=== PATIENT | female | born 1995 | race Caucasian/White ===

== ENCOUNTER 2016-11-08 18:52 | Emergency (ER) | payer SELFPAY ==
[~2016-11-08] VITALS: Ht 154.9 cm; Wt 54.4 kg
[~2016-11-08 18:52] MED LIST: CIPR500T94 PO; DEXT5TAB27 PO; DOXY100C2 PO; DOXY100T9 PO; HYDR-2666 PO; HYDR-2678 PO; IBUP-1060 PO; METR500T PO; ONDA4TAB10 SL; SULF1TAB24 PO
[2016-11-08 19:30] VITALS: BP 118/67
[2016-11-08 19:54] LABS: BILIRUBIN,URINE NEGATIVE (NEG); GLUCOSE,URINE NEGATIVE (NEG); NITRITE,URINE NEGATIVE (NEG); PROTEIN,URINE NEGATIVE (NEG-TRACE)
[2016-11-08] MEDS ORDERED: AZITHROMYCIN 250 MG TABLET PO ONE (20:00)
[2016-11-08] MEDS ORDERED: CEFTRIAXONE IM 250 MG VIAL. IM ONE (20:00)
[2016-11-08 20:12] LABS: BACTERIA,URINE FEW /HPF (0-FEW); RBC,URINE 0 /HPF (0-2); SQUAMOUS EPITHELIAL CELL,UR MOD /LPF
--- NOTE | 2016-11-08 22:25 | PHYS DOC ---
Past Medical History Past Medical History: Other Additional Past Medical Histor: PID, ENDOMETRIOSIS, ovarian cyst Past Surgical History: Other Additional Past Surgical Histo: wisdom teeth extraction, RIGHT OVARIAN CYST REMOVAL Smoking: Cigar Alcohol Use: Occasionally Drug Use: Marijuana Adult General Chief Complaint Chief Complaint: PAIN ON URINATION [facility] HPI Patient is a 21 year old female who presents with dysuria for 4 days. She also reports urinary frequency, suprapubic pain, and vaginal discharge. She has had occasional nausea with vomiting. Patient also reports that starting yesterday she has had a sore throat, productive cough, nasal congestion. Review of systems negative for hematuria, fever, diarrhea, dyspnea, or ear pain. LMP . She is sexually active and does not use any control or condoms. She has a stable monogamous partner. She has a history of PID. She does not have a primary care doctor. Review of Systems Review of Systems Constitutional: Denies fever or chills. [] Eyes: Denies change in visual acuity, redness, or eye pain. [] HENT: Denies ear pain. Reports nasal congestion and sore throat. Respiratory: Denies shortness of breath. Reports productive cough. Cardiovascular: Denies chest pain, palpitations or edema. [] GI: Denies bloody stools or diarrhea. Reports suprapubic pain, nausea, vomiting. : Denies hematuria. Reports dysuria, urinary frequency, and vaginal discharge. Musculoskeletal: Denies back pain or joint pain. [] Integument: Denies rash or skin lesions. [] Neurologic: Denies headache, focal weakness or sensory changes. [] Endocrine: Denies polyuria or polydipsia. [] Psych: Denies anxiety or depression. [] All systems reviewed and negative unless otherwise stated in the HPI. Current Medications Current Medications Current Medications Medications (Trade) Dose Ordered Sig/Maggie Start Time Stop Time Status Last Admin Dose Admin Azithromycin (Zithromax) 1,000 mg 1X ONCE 11/08/16 20:00 11/08/16 20:01 DC 11/08/16 20:38 1,000 MG Ceftriaxone Sodium (Rocephin Im) 250 mg 1X ONCE 11/08/16 20:00 11/08/16 20:01 DC 11/08/16 20:38 250 MG Allergies Allergies Allergies Coded Allergies Type Severity Reaction Last Updated Verified No Known Drug Allergies 05/09/16 No Physical Exam Physical Exam Constitutional: Well developed, well nourished, no acute distress, non-toxic appearance. [] HENT: Normocephalic, atraumatic, bilateral external ears normal, oropharynx moist, no oral exudates, nose normal. Bilateral TMs without erythema or bulging. There is no posterior pharyngeal erythema or tonsillar edema. Bilateral nasal turbinates are swollen and erythematous. Eyes: PERRLA, EOMI, conjunctiva normal, no discharge. [] Neck: Normal range of motion, no tenderness, supple, no stridor. [] Cardiovascular: Heart rate regular rhythm, no murmur [] Lungs & Thorax: Bilateral breath sounds clear to auscultation without wheezes, rales, or rhonchi. Abdomen: Bowel sounds normal, soft, suprapubic tenderness, no masses, no pulsatile masses. [] Female : ED RN cost controller present. Normal external genitalia. There is mild discharge in the vagina. There is no bleeding. There is no cervicitis or CMT. There is no adnexal mass or tenderness. Skin: Warm, dry, no erythema, no rash. [] Back: No tenderness, no CVA tenderness. [] Extremities: No tenderness, no cyanosis, no clubbing, ROM intact, no edema. [] Neurologic: Alert and oriented X 3, normal motor function, normal sensory function, no focal deficits noted. [] Psychologic: Affect normal, judgement normal, mood normal. [] Current Patient Data Vital Signs Vital Signs Date Time Temp Pulse Resp B/P Pulse Ox O2 Delivery O2 Flow Rate FiO2 11/08/16 19:30 98.8 89 20 100 Room Air 98.8 Lab Values Laboratory Tests Test 11/08/16 19:00 11/08/16 19:41 Urine Color Yellow Urine Clarity Clear Urine pH 6.0 Urine Specific [place] 1.025 Urine Protein Negativemg/dL (NEG-TRACE) Urine Glucose (UA) Negativemg/dL (NEG) Urine Ketones (Stick) Negativemg/dL (NEG) Urine Blood Negative (NEG) Urine Nitrite Negative (NEG) Urine Bilirubin Negative (NEG) Urine Urobilinogen Dipstick 1.0mg/dL (0.2 mg/dL) Urine Leukocyte Esterase Small (NEG) Urine RBC 0/HPF (0-2) Urine WBC 1-4/HPF (0-4) Urine Squamous Epithelial Cells Mod/LPF Urine Bacteria Few/HPF (0-FEW) Urine Mucus Mod/LPF POC Urine HCG, Qualitative Hcg negative (Negative) Microbiology 11/08/16 Wet Prep - Final, Complete WET PREP Final YEAST NONE SEEN TRICHOMONAS NONE SEEN CLUE CELLS CLUE CELLS PRESENT ALTERED ASHANTI ALTERED ASHANTI PRESENT SUGGESTIVE OF BACTERIAL VAGINOSIS WBCS OCCASIONAL RBCS OCCASIONAL SQUAMOUS EPS OCCASIONAL EKG EKG [] Radiology/Procedures Radiology/Procedures [] Course & Med Decision Making Course & Med Decision Making Pertinent Labs and Imaging studies reviewed. (See chart for details) Patient presents with UTI symptoms and URI symptoms. On exam, she appears to have viral upper respiratory infection. Her abdomen is soft and nonsurgical with suprapubic tenderness. Pelvic examination and negative for bleeding, CMT, or adnexal abnormality. Urine is unremarkable for infection. Wet prep is positive for bacterial vaginosis. The patient was treated with Rocephin and azithromycin in the emergency department for STD prophylaxis. She left prior to receiving her results or discharge paperwork. She was not treated for the bacterial vaginosis. ED RN attempted to contact the patient to inform her of the results so that she may return and receive her paperwork and prescription. She left a voicemail for the patient to return the call. Patient remained stable while in the emergency department. Dragon Disclaimer Dragon Disclaimer This electronic medical record was generated, in whole or in part, using a voice recognition dictation system. Departure Departure Impression: Primary Impression: Left against medical advice Additional Impressions: Bacterial vaginosis URI (upper respiratory infection) Disposition: 07 AGAINST MEDICAL ADVICE Condition: STABLE Referrals: NO PCP (PCP) Problem Qualifiers Additional Impressions: URI (upper respiratory infection) URI type: unspecified viral URI Qualified Code: J06.9 - Acute upper respiratory infection, unspecified LAURITA GATES Nov 08, 2016 22:25
== END 2016-11-08 21:27 | disposition left against medical advice (07) ==
LOC: ER 18:52
DX: N76.0 Acute vaginitis (principal); J06.9 Acute upper respiratory infection, unspecified; F17.210 Nicotine dependence, cigarettes, uncomplicated; F12.10 Cannabis abuse, uncomplicated; B96.89 Other specified bacterial agents as the cause of diseases classified elsewhere
CPT/HCPCS: 81001; 81025; 87086; 96372; 99284; J0696; Q0111; Q0144

== ENCOUNTER 2016-12-06 16:22 | Emergency (ER) | payer SELFPAY ==
[~2016-12-06] VITALS: Ht 154.9 cm; Wt 54.4 kg
--- NOTE | 2016-12-06 17:27 | PHYS DOC ---
Past Medical History Past Medical History: Endometriosis, Other Additional Past Medical Histor: PID, ovarian cyst Past Surgical History: Other Additional Past Surgical Histo: wisdom teeth extraction, RIGHT OVARIAN CYST REMOVAL Additional Information: BLACK AND MILDS 1 A DAY Alcohol Use: Occasionally Additional Information: EVERY COUPLE OF WEEKENDS Drug Use: Marijuana Adult General Chief Complaint Chief Complaint: ABDOMINAL PAIN HPI HPI Patient is a 21 year old female who presents with complaint of left lower quadrant abdominal and pelvic pain. Patient states that she has had intermittent symptoms over the past 6 months but has been getting progressive symptoms over the past few days. Patient states that her pain radiates towards her left upper leg. Patient also states over the past 2 weeks she has had abnormal vaginal discharge. Patient states that 6 months ago she had a laparoscopic procedure for treatment of endometriosis and ovarian cysts. Patient 's last menstrual period was on November 15, 2016. Patient states that her pain currently as 9 out of 10. The patient is concerned that her endometriosis may be coming back. Patient has not had any fevers or vomiting associated with her symptoms. Review of Systems Review of Systems Constitutional: Denies fever or chills [] Eyes: Denies change in visual acuity, redness, or eye pain [] HENT: Denies nasal congestion or sore throat [] Respiratory: Denies cough or shortness of breath [] Cardiovascular: No additional information not addressed in HPI [] GI: Denies abdominal pain, nausea, vomiting, bloody stools or diarrhea [] : Pelvic pain, vaginal discharge [] Musculoskeletal: Denies back pain or joint pain [] Integument: Denies rash or skin lesions [] Neurologic: Denies headache, focal weakness or sensory changes [] Current Medications Current Medications Current Medications Medications (Trade) Dose Ordered Sig/Maggie Start Time Stop Time Status Last Admin Dose Admin Acetaminophen/ Hydrocodone Bitart (Lortab 7.5/325) 1 tab 1X ONCE 12/06/16 17:30 12/06/16 17:31 DC 12/06/16 17:45 1 TAB Allergies Allergies Allergies Coded Allergies Type Severity Reaction Last Updated Verified No Known Drug Allergies 05/09/16 No Physical Exam Physical Exam Constitutional: Alert, afebrile, appears in minimal discomfort. [] HENT: Normocephalic, atraumatic, bilateral external ears normal, oropharynx moist, no oral exudates, nose normal. [] Eyes: PERRLA, EOMI, conjunctiva normal, no discharge. [] Neck: Normal range of motion, no tenderness, supple, no stridor. [] Cardiovascular:Heart rate regular rhythm, no murmur [] Lungs & Thorax: Bilateral breath sounds clear to auscultation [] Abdomen: Bowel sounds normal, soft, left lower quadrant tenderness to palpation with mild guarding, no rebound tenderness, no masses, no pulsatile masses. [] Skin: Warm, dry, no erythema, no rash. [] Back: No tenderness, no CVA tenderness. [] Extremities: No tenderness, no cyanosis, no clubbing, ROM intact, no edema. [] Neurologic: Alert and oriented X 3, normal motor function, normal sensory function, no focal deficits noted. [] Current Patient Data Vital Signs Vital Signs Date Time Temp Pulse Resp B/P Pulse Ox O2 Delivery O2 Flow Rate FiO2 12/06/16 18:32 54 16 106/65 100 Room Air 12/06/16 16:40 98.1 98.1 Lab Values Laboratory Tests Test 12/06/16 15:40 12/06/16 16:32 12/06/16 17:45 POC Urine HCG, Qualitative Hcg negative (Negative) Urine Collection Type Unknown Urine Color Yellow Urine Clarity Clear Urine pH 6.5 Urine Specific [place] 1.015 Urine Protein Negativemg/dL (NEG-TRACE) Urine Glucose (UA) Negativemg/dL (NEG) Urine Ketones (Stick) Negativemg/dL (NEG) Urine Blood Negative (NEG) Urine Nitrite Negative (NEG) Urine Bilirubin Negative (NEG) Urine Urobilinogen Dipstick 0.2mg/dL (0.2 mg/dL) Urine Leukocyte Esterase Negative (NEG) Urine RBC 0/HPF (0-2) Urine WBC Occ/HPF (0-4) Urine Squamous Epithelial Cells Mod/LPF Urine Bacteria 0/HPF (0-FEW) Urine Mucus Mod/LPF White Blood Count 6.4x10^3/uL (4.0-11.0) Red Blood Count 4.23x10^6/uL (3.50-5.40) Hemoglobin 12.7g/dL (12.0-15.5) Hematocrit 38.3% (36.0-47.0) Mean Corpuscular Volume 91fL (79-100) Mean Corpuscular Hemoglobin 30pg (25-35) Mean Corpuscular Hemoglobin Concent 33g/dL (31-37) Red Cell Distribution Width 14.9% (11.5-14.5) H Platelet Count 221x10^3/uL (140-400) Neutrophils (%) (Auto) 49% (31-73) Lymphocytes (%) (Auto) 34% (24-48) Monocytes (%) (Auto) 12% (0-9) H Eosinophils (%) (Auto) 4% (0-3) H Basophils (%) (Auto) 1% (0-3) Neutrophils # (Auto) 3.2x10^3uL (1.8-7.7) Lymphocytes # (Auto) 2.2x10^3/uL (1.0-4.8) Monocytes # (Auto) 0.8x10^3/uL (0.0-1.1) Eosinophils # (Auto) 0.2x10^3/uL (0.0-0.7) Basophils # (Auto) 0.1x10^3/uL (0.0-0.2) Sodium Level 146mmol/L (136-145) H Potassium Level 4.4mmol/L (3.5-5.1) Chloride Level 111mmol/L (98-107) H Carbon Dioxide Level 25mmol/L (21-32) Anion Gap 10 (6-14) Blood Urea Nitrogen 13mg/dL (7-20) Creatinine 0.7mg/dL (0.6-1.0) Estimated GFR (Cockcroft-Gault) 106.7 Glucose Level 74mg/dL (70-99) Calcium Level 8.8mg/dL (8.5-10.1) Magnesium Level 2.2mg/dL (1.8-2.4) Laboratory Tests 12/06/16 17:45 Laboratory Tests 12/06/16 17:45 Microbiology 12/06/16 Wet Prep - Final, Complete EKG EKG Not performed [] Radiology/Procedures Radiology/Procedures [facility] [address] [place] [address] IMAGING REPORT Signed PATIENT: BANDAR SANDHU ACCOUNT: [id number] : 1995 LOCATION: ER AGE: 21 SEX: F EXAM STATUS: REG ER ORD. PHYSICIAN: DAVID WONG MD REASON: left adnexal pain, history of endometriosis and ovarian cysts PROCEDURE: PELVIS COMPLETE PROCEDURE Ultrasound pelvis with endovaginal imaging. HISTORY Left adnexal pain, history of endometriosis. TECHNIQUE Transabdominal imaging was performed for initial evaluation of the pelvis. Endovaginal imaging was performed for optimal characterization of the endometrium. COMPARISON None. FINDINGS Transabdominal imaging: Uterus measures 7.4 centimeters centimeters in length. On the transabdominal imaging, there appears to be subtly hypoechoic area involving the endometrium. Endometrial thickness is 15 millimeters. Right ovary measures 3.6 x 1.8 x 3.0 centimeters. Left ovary measures 4.1 x 2.2 x 3.6 centimeters. Endovaginal imaging: Uterus measures 7.6 centimeters in length. Endometrial thickness is 18 millimeters, at the upper limits of normal. Appearance of the endometrium suggest mild Muellerian septation anomaly, such as septate uterus. There is some heterogeneity of endometrial stripe. The left ovary measures 2.9 x 2.9 x 2.8 centimeters and demonstrates a few follicles. Right ovary measures 2.7 x 1.8 x 2.0 centimeters and demonstrates a few follicles. Both ovaries demonstrate normal vascular flow upon Doppler interrogation and are without evidence of torsion. No adnexal masses or free fluid is seen. Both ovaries demonstrate normal vascular flow upon Doppler interrogation and are without evidence of torsion. No adnexal masses are seen. IMPRESSION 1. Appearance of endometrium raises possibility of Muellerian septation anomaly, such as arcuate uterus. 2. There is slight heterogeneity of the endometrium. Recommend correlation with beta HCG to exclude possibility of . 3. Both ovaries are without evidence of torsion. No adnexal masses are seen. Electronically signed by: Misael Carlos MD (Dec 06, 2016 18:51:36) DICTATED and SIGNED BY: MISAEL CARLOS MD DATE: 12/06/161850 CC: DAVID WONG MD; NO PCP ~ [] Course & Med Decision Making Course & Med Decision Making Pertinent Labs and Imaging studies reviewed. (See chart for details) Patient was given [place] in the emergency department for pain. The patient's ultrasound does not show evidence of ovarian torsion or evidence of significant ovarian cysts. The patient's vital signs are stable. Patient has history of chronic pain and has been on OxyContin therapy for treatment. I do not see any evidence of acute surgical process. I recommended that the patient continue on home medications for pain and patient will be started on Naprosyn as an anti- inflammatory to assist with pain control. Advised patient follow-up with her OB/ [facility] in one week. Recommended return to emergency department for any worsening symptoms. Patient was understanding and in agreement with treatment plan. Dragon Disclaimer Dragon Disclaimer This electronic medical record was generated, in whole or in part, using a voice recognition dictation system. Departure Departure Impression: Primary Impression: Pelvic pain Disposition: HOME, SELF-CARE Condition: IMPROVED Referrals: NO PCP (PCP) Patient Instructions: Pelvic Pain, Female Additional Instructions: Follow-up with your [facility] in one week. Return to emergency department for any worsening symptoms. Scripts Naproxen (Naprosyn)500 Mg [id number] Mg PO BID PRN PAIN #20 TAB Prov:DAVID WONG MD 12/06/16 DAVID WONG MD Dec 06, 2016 17:27
[2016-12-06] MEDS ORDERED: HYDROCODONE/APAP 7.5/325MG TABLET. PO ONE (17:30)
[2016-12-06 17:57] LABS: BILIRUBIN,URINE NEGATIVE (NEG); GLUCOSE,URINE NEGATIVE (NEG); NITRITE,URINE NEGATIVE (NEG); PH,URINE 6.5; PROTEIN,URINE NEGATIVE (NEG-TRACE); UROBILINOGEN,URINE 0.2 mg/dL (0.2 mg/dL)
[2016-12-06 18:08] LABS: BASO # 0.1 x10^3/uL (0.0-0.2); BASO % 1 % (0-3); EOS % 4 % (0-3); HEMATOCRIT 38.3 % (36.0-47.0); HEMOGLOBIN 12.7 g/dL (12.0-15.5); LYMPH # 2.2 x10^3/uL (1.0-4.8); LYMPH % 34 % (24-48); MEAN CORPUSCULAR HEMOGLOBIN 30 pg (25-35); MEAN CORPUSCULAR HGB CONC 33 g/dL (31-37); MEAN CORPUSCULAR VOLUME 91 fL (79-100); MONO % 12 % (0-9); NEUT % 49 % (31-73); PLATELET COUNT 221 x10^3/uL (140-400); RED BLOOD COUNT 4.23 x10^6/uL (3.50-5.40); RED CELL DISTRIBUTION WIDTH 14.9 % (11.5-14.5); WHITE BLOOD COUNT 6.4 x10^3/uL (4.0-11.0)
[2016-12-06 18:09] LABS: BACTERIA,URINE 0 /HPF (0-FEW); RBC,URINE 0 /HPF (0-2); SQUAMOUS EPITHELIAL CELL,UR MOD /LPF; WBC,URINE OCC /HPF (0-4)
[2016-12-06 18:15] LABS: CALCIUM 8.8 mg/dL (8.5-10.1); CREATININE 0.7 mg/dL (0.6-1.0); GFR 106.7; MAGNESIUM 2.2 mg/dL (1.8-2.4); POTASSIUM 4.4 mmol/L (3.5-5.1)
[2016-12-06 18:32] VITALS: BP 106/65
--- NOTE | 2016-12-06 18:53 | RAD ---
PROCEDURE Ultrasound pelvis with endovaginal imaging. HISTORY Left adnexal pain, history of endometriosis. TECHNIQUE Transabdominal imaging was performed for initial evaluation of the pelvis. Endovaginal imaging was performed for optimal characterization of the endometrium. COMPARISON None. FINDINGS Transabdominal imaging: Uterus measures 7.4 centimeters centimeters in length. On the transabdominal imaging, there appears to be subtly hypoechoic area involving the endometrium. Endometrial thickness is 15 millimeters. Right ovary measures 3.6 x 1.8 x 3.0 centimeters. Left ovary measures 4.1 x 2.2 x 3.6 centimeters. Endovaginal imaging: Uterus measures 7.6 centimeters in length. Endometrial thickness is 18 millimeters, at the upper limits of normal. Appearance of the endometrium suggest mild Muellerian septation anomaly, such as septate uterus. There is some heterogeneity of endometrial stripe. The left ovary measures 2.9 x 2.9 x 2.8 centimeters and demonstrates a few follicles. Right ovary measures 2.7 x 1.8 x 2.0 centimeters and demonstrates a few follicles. Both ovaries demonstrate normal vascular flow upon Doppler interrogation and are without evidence of torsion. No adnexal masses or free fluid is seen. Both ovaries demonstrate normal vascular flow upon Doppler interrogation and are without evidence of torsion. No adnexal masses are seen. IMPRESSION 1. Appearance of endometrium raises possibility of Muellerian septation anomaly, such as arcuate uterus. 2. There is slight heterogeneity of the endometrium. Recommend correlation with beta HCG to exclude possibility of . 3. Both ovaries are without evidence of torsion. No adnexal masses are seen. Electronically signed by: Misael Carlos MD (Dec 06, 2016 18:51:36)
[2016-12-06] MEDS ORDERED: NAPR500T PO (19:20)
[2016-12-06] MEDS ORDERED: NAPROXEN 500 MG TABLET PO STA (19:20)
== END 2016-12-06 19:33 | disposition home or self-care (01) ==
LOC: ER 16:22
DX: R10.2 Pelvic and perineal pain (principal); R10.32 Left lower quadrant pain; G89.29 Other chronic pain; N73.9 Female pelvic inflammatory disease, unspecified; F12.10 Cannabis abuse, uncomplicated; F17.200 Nicotine dependence, unspecified, uncomplicated
CPT/HCPCS: 36415; 76856; 80048; 81001; 81025; 83735; 85027; 87491; 87591; 99285; Q0111

== ENCOUNTER 2016-12-15 13:09 | Emergency (ER) | payer SELFPAY ==
[~2016-12-15] VITALS: Ht 154.9 cm; Wt 56.7 kg
[~2016-12-15 13:09] MED LIST changes: +NAPR500T PO
[2016-12-15 13:11] VITALS: BP 129/62
--- NOTE | 2016-12-15 14:20 | RAD ---
AP view of the pelvis and two-view study of the left hip Indications: Fell down 20 stairs yesterday. Left hip pain. Left hip: No acute fracture or dislocation or osteolytic process is seen. Pelvis: Hip joints are symmetric. No diastases is seen. No acute fracture or osteolytic process is seen. IMPRESSION: No acute fracture.
--- NOTE | 2016-12-15 14:23 | RAD ---
Two-view left rib detail series and PA view chest x-ray History: Fell down 20 stairs yesterday. Left lower rib cage pain. Findings: No acute left rib fracture is seen. Chest x-ray demonstrates no acute lung infiltrate or pleural effusion or pulmonary edema or pneumothorax. The heart size and mediastinum and pulmonary vasculature and both kristina are unremarkable. IMPRESSION: No acute left rib fracture.
[2016-12-15] MEDS ORDERED: KETOROLAC TROMETHAMINE 60 MG/2 ML INJ. IM ONE (14:45)
[2016-12-15] MEDS ORDERED: TRAM-29 PO (15:04)
[2016-12-15] MEDS ORDERED: METH-37 PO (15:04)
--- NOTE | 2016-12-15 15:04 | PHYS DOC ---
Past Medical History Past Medical History: Endometriosis, Other Additional Past Medical Histor: PID, ovarian cyst Past Surgical History: Other Additional Past Surgical Histo: wisdom teeth extraction, RIGHT OVARIAN CYST REMOVAL Smoking: Cigar Alcohol Use: Occasionally Drug Use: Marijuana Adult General Chief Complaint Chief Complaint: HIP PAIN [facility] HPI Patient is a 21 year old female who presents with with rib and left hip pain after fall yesterday. Patient states that she slipped on wet stairs and fell down approximately 20 stairs. She denies any loss of consciousness. The left hip pain radiates down the left leg. She does not have any weakness or numbness , abdominal pain, nausea, vomiting, or shortness of breath. She is ambulatory. She tried taking ibuprofen at home without relief of her pain. She does not have a PCP. Review of Systems Review of Systems Constitutional: Denies fever or chills. [] Eyes: Denies change in visual acuity, redness, or eye pain. [] HENT: Denies ear pain, nasal congestion or sore throat. [] Respiratory: Denies cough or shortness of breath. [] Cardiovascular: Denies chest pain, palpitations or edema. [] GI: Denies abdominal pain, nausea, vomiting, bloody stools or diarrhea. [] : Denies dysuria, hematuria or urinary frequency. [] Musculoskeletal: Reports left lateral rib and left hip pain. Integument: Denies rash or skin lesions. Reports left hip ecchymosis. Neurologic: Denies headache, focal weakness or sensory changes. Denies loss of consciousness. Endocrine: Denies polyuria or polydipsia. [] Psych: Denies anxiety or depression. [] All systems reviewed and negative unless otherwise stated in the HPI. Current Medications Current Medications Current Medications Medications (Trade) Dose Ordered Sig/Maggie Start Time Stop Time Status Last Admin Dose Admin Ketorolac Tromethamine (Toradol Im) 60 mg 1X ONCE 12/15/16 14:45 12/15/16 14:46 DC 12/15/16 14:52 60 MG Allergies Allergies Allergies Coded Allergies Type Severity Reaction Last Updated Verified No Known Drug Allergies 05/09/16 No Physical Exam Physical Exam Constitutional: Well developed, well nourished, no acute distress, non-toxic appearance. [] HENT: Normocephalic, atraumatic, oropharynx moist. [] Eyes: PERRLA, EOMI, conjunctiva normal, no discharge. [] Neck: Normal range of motion, no tenderness, supple, no stridor. [] Cardiovascular: Heart rate regular rhythm, no murmur. [] Lungs & Thorax: Bilateral breath sounds clear to auscultation without wheezes, rales, or rhonchi. Left lateral rib tenderness without crepitus. No respiratory distress. Abdomen: Bowel sounds normal, soft, no tenderness, no masses, no pulsatile masses. [] Skin: Warm, dry, no erythema, no rash. There is mild ecchymosis over the left anterior superior iliac spine. Back: No midline tenderness, no CVA tenderness. [] Extremities: Left lateral hip tenderness, ROM intact, no edema. 2+ pedal pulses bilaterally. Light touch sensation intact proximally and distally and equal bilaterally in the lower extremities. Neurologic: Alert and oriented X 3, normal motor function, normal sensory function, no focal deficits noted. [] Psychologic: Affect normal, judgement normal, mood normal. [] Current Patient Data Vital Signs Vital Signs Date Time Temp Pulse Resp B/P Pulse Ox O2 Delivery O2 Flow Rate FiO2 12/15/16 13:11 98.2 87 20 129/62 100 Room Air 98.2 Lab Values Laboratory Tests Test 12/15/16 12:51 POC Urine HCG, Qualitative Hcg negative (Negative) EKG EKG [] Radiology/Procedures Radiology/Procedures REASON: fall down stairs yesterday PROCEDURE: HIP LEFT 2V WITH PELVIS AP view of the pelvis and two-view study of the left hip Indications: Fell down 20 stairs yesterday. Left hip pain. Left hip: No acute fracture or dislocation or osteolytic process is seen. Pelvis: Hip joints are symmetric. No diastases is seen. No acute fracture or osteolytic process is seen. IMPRESSION: No acute fracture. REASON: fall down stairs yesterday PROCEDURE: RIBS LEFT AND PA CHEST Two-view left rib detail series and PA view chest x-ray History: Fell down 20 stairs yesterday. Left lower rib cage pain. Findings: No acute left rib fracture is seen. Chest x-ray demonstrates no acute lung infiltrate or pleural effusion or pulmonary edema or pneumothorax. The heart size and mediastinum and pulmonary vasculature and both kristina are unremarkable. IMPRESSION: No acute left rib fracture. Course & Med Decision Making Course & Med Decision Making Pertinent Labs and Imaging studies reviewed. (See chart for details) [] Dragon Disclaimer Dragon Disclaimer This electronic medical record was generated, in whole or in part, using a voice recognition dictation system. Departure Departure Impression: Primary Impression: Rib contusion Additional Impression: Contusion of hip, left Disposition: 01 HOME, SELF-CARE Condition: STABLE Referrals: NO PCP (PCP) Patient Instructions: Hip Pointer (Iliac Crest Contusion)-Sports[facility], Rib Contusion Additional Instructions: There were no broken bones seen on your x-rays today. Please take the prescribed medications as directed. Do not drive or operate heavy machinery while taking these medications. Please follow-up with a primary care doctor if your pain continues. Return to the emergency department if you have any new or concerning symptoms. Scripts Methocarbamol (Robaxin)500 Mg [id number] Mg PO QID #20 TAB Prov:LAURITA GATES 12/15/16 Tramadol Hcl (Ultram)50 Mg [id number] Mg PO Q6H PRN PAIN #20 TAB Prov:LAURITA GATES 12/15/16 Problem Qualifiers Primary Impression: Rib contusion Encounter type: initial encounter Laterality: left Qualified Code: S20.212A - Contusion of left front wall of thorax, initial encounter LAURITA GATES Dec 15, 2016 15:04
== END 2016-12-15 15:15 | disposition home or self-care (01) ==
LOC: ER 13:09
DX: S20.212A Contusion of left front wall of thorax, initial encounter (principal); S70.02XA Contusion of left hip, initial encounter; W10.8XXA Fall (on) (from) other stairs and steps, initial encounter; Y93.89 Activity, other specified; Y92.89 Other specified places as the place of occurrence of the external cause; Y99.8 Other external cause status
CPT/HCPCS: 71101; 73502; 81025; 96372; 99284; J1885

== ENCOUNTER 2017-01-06 11:45 | Emergency (ER) | payer SELFPAY ==
[~2017-01-06 11:45] MED LIST changes: +METH-37 PO; +TRAM-29 PO
[2017-01-06] MEDS ORDERED: METR500T PO (16:48)
[2017-01-06] MEDS ORDERED: NITR100C62 PO (16:48)
[2017-01-06] MEDS ORDERED: PRED20TA PO (16:51)
== END 2017-01-06 13:23 | disposition left against medical advice (07) ==
LOC: ER 11:45
DX: N89.8 Other specified noninflammatory disorders of vagina (principal)

== ENCOUNTER 2017-01-06 14:09 | Emergency (ER) | payer SELFPAY ==
[~2017-01-06] VITALS: Ht 154.9 cm; Wt 56.7 kg
[2017-01-06 15:17] VITALS: BP 109/75
--- NOTE | 2017-01-06 15:57 | PHYS DOC ---
Past Medical History Past Medical History: Endometriosis, Other Additional Past Medical Histor: PID, ovarian cyst Past Surgical History: Other Additional Past Surgical Histo: wisdom teeth extraction, RIGHT OVARIAN CYST REMOVAL Additional Information: smokes 1/2 black and mild cigar daily Alcohol Use: Occasionally Drug Use: Marijuana Adult General Chief Complaint Chief Complaint: MULTIPLE COMPLAINTS [facility] HPI Patient is a 21 year old female presents to the emergency department stating that she has left lower back pain down in the left leg. She states she was seen here in December when she had fallen down the stairs and was diagnosed with back strain. She was provided with tramadol which has not helped the pain. She also state she is having vaginal discharge in which she had been diagnosed with BV but did not complete treatment. She is sexually active with one partner without protection. Review of Systems Review of Systems Constitutional: Denies fever or chills [] Eyes: Denies change in visual acuity, redness, or eye pain [] HENT: Denies nasal congestion or sore throat [] Respiratory: Denies cough or shortness of breath [] Cardiovascular: No additional information not addressed in HPI [] GI: Denies abdominal pain, nausea, vomiting, bloody stools or diarrhea [] : dysuria denies hematuria, c/o vaginal discharge Musculoskeletal: left lower back pain denies joint pain [] Integument: Denies rash or skin lesions [] Neurologic: Denies headache, focal weakness or sensory changes [] Allergies Allergies Allergies Coded Allergies Type Severity Reaction Last Updated Verified No Known Drug Allergies 05/09/16 No Physical Exam Physical Exam Constitutional: Well developed, well nourished, no acute distress, non-toxic appearance. [] HENT: Normocephalic, atraumatic, bilateral external ears normal, oropharynx moist, no oral exudates, nose normal. [] Eyes: PERRLA, EOMI, conjunctiva normal, no discharge. [] Neck: Normal range of motion, no tenderness, supple, no stridor. [] Cardiovascular:Heart rate regular rhythm, no murmur [] Lungs & Thorax: Bilateral breath sounds clear to auscultation [] Skin: Warm, dry, no erythema, no rash. [] Back: Left lower back tenderness[] Extremities: No tenderness, no cyanosis, no clubbing, ROM intact, no edema. Peripheral pulse 2+ cap refill brisk < 2 seconds. Good sensation noted. Neurologic: Alert and oriented X 3, normal motor function, normal sensory function, no focal deficits noted. [] Psychologic: Affect normal, judgement normal, mood normal. [] Vaginal exam: speculum exam with patient noted to have white thick vaginal discharge. Manual exam: no CMT no adnexal tenderness noted. Current Patient Data Vital Signs Vital Signs Date Time Temp Pulse Resp B/P Pulse Ox O2 Delivery O2 Flow Rate FiO2 01/06/17 15: 97.9 73 16 109/75 99 Room Air 97.9 Lab Values Laboratory Tests Test 01/06/17 15:08 01/06/17 15:45 POC Urine HCG, Qualitative Hcg negative (Negative) Urine Color Yellow Urine Clarity Clear Urine pH 6.5 Urine Specific [place] 1.015 Urine Protein Negativemg/dL (NEG-TRACE) Urine Glucose (UA) Negativemg/dL (NEG) Urine Ketones (Stick) Negativemg/dL (NEG) Urine Blood Negative (NEG) Urine Nitrite Negative (NEG) Urine Bilirubin Negative (NEG) Urine Urobilinogen Dipstick 0.2mg/dL (0.2 mg/dL) Urine Leukocyte Esterase Trace (NEG) Urine RBC 0/HPF (0-2) Urine WBC 1-4/HPF (0-4) Urine Squamous Epithelial Cells Occ/LPF Urine Amorphous Sediment Present/HPF Urine Bacteria Few/HPF (0-FEW) Microbiology 01/06/17 Wet Prep - Final, Complete EKG EKG [] Radiology/Procedures Radiology/Procedures [] Course & Med Decision Making Course & Med Decision Making Pertinent Labs and Imaging studies reviewed. (See chart for details) Urine was positive for urinary tract infection, with prep was positive for bacterial vaginosis. Patient states she is not concerned for any sexual transmitted infections in with prefer not to be treated at this time. Patient will be discharged home with Flagyl and with Macrobid. Patient will be encouraged to drink plenty of fluids such as water and cranberry juice. Recommended avoiding cranberry juice cocktail, carbonated beverages, citrus fruits and alcohol sees her considered irritants to the bladder. Patient will be discharged home with signs and symptoms to return back to emergency department. [] Dragon Disclaimer Dragon Disclaimer This electronic medical record was generated, in whole or in part, using a voice recognition dictation system. Departure Departure Impression: Primary Impression: Bacterial vaginosis Additional Impression: Urinary tract infection Disposition: 01 HOME, SELF-CARE Condition: STABLE Referrals: NO PCP (PCP) Patient Instructions: Bacterial Vaginosis, [id number], Urinary Tract Infection, [id number] Additional Instructions: Urine results was positive for urinary tract infection. Wet prep was positive for bacterial vaginosis. You'll be contacted in 3-4 days if you're results for sexual transmitted infections are positive. Medications as prescribed. Drink plenty of fluids such as water and cranberry juice. Avoid cranberry juice cocktail, carbonated beverages, citrus fruits and alcohol sees her considered irritants to the bladder. Follow-up to primary care physician next 7-10 days. Return back to emergency prior signs and symptoms of become worse. Scripts Nitrofurantoin Monohyd/M-Cryst (Macrobid 100 Mg Capsule)100 Mg Capsule1 Cap PO BID #14 CAP Prov:RAVINDER FIERRO APRN 01/06/17 Metronidazole (Flagyl)500 Mg Tablet1 Tab PO BID #14 TAB Prov:RAVINDER FIERRO APRN 01/06/17 Problem Qualifiers RAVINDER FIERRO APRN January 06, 2017 15:57
[2017-01-06 16:25] LABS: BILIRUBIN,URINE NEGATIVE (NEG); GLUCOSE,URINE NEGATIVE (NEG); NITRITE,URINE NEGATIVE (NEG); PH,URINE 6.5; PROTEIN,URINE NEGATIVE (NEG-TRACE); UROBILINOGEN,URINE 0.2 mg/dL (0.2 mg/dL)
[2017-01-06 16:43] LABS: BACTERIA,URINE FEW /HPF (0-FEW); RBC,URINE 0 /HPF (0-2); SQUAMOUS EPITHELIAL CELL,UR OCC /LPF
[2017-01-06] MEDS ORDERED: NITR100C62 PO (16:48)
[2017-01-06] MEDS ORDERED: METR500T PO (16:48)
[2017-01-06] MEDS ORDERED: PRED20TA PO (16:51)
== END 2017-01-06 17:12 | disposition home or self-care (01) ==
LOC: ER 14:09
DX: N76.0 Acute vaginitis (principal); N39.0 Urinary tract infection, site not specified; B96.89 Other specified bacterial agents as the cause of diseases classified elsewhere; F17.210 Nicotine dependence, cigarettes, uncomplicated; F12.10 Cannabis abuse, uncomplicated
CPT/HCPCS: 81001; 81025; 87086; 87491; 87591; 99284; Q0111; 87186

== ENCOUNTER 2017-02-16 18:24 | Emergency (ER) | payer SELFPAY ==
[~2017-02-16 18:24] MED LIST changes: -HYDR-2666 PO; +HYDR-2758 PO; +NITR100C62 PO; +PRED20TA PO; -TRAM-29 PO; +TRAM-48 PO
[2017-02-16 18:38] VITALS: BP 98/67
--- NOTE | 2017-02-16 18:51 | PHYS DOC ---
Past Medical History Past Medical History: Endometriosis, Other Additional Past Medical Histor: PID, ovarian cyst Past Surgical History: Other Additional Past Surgical Histo: wisdom teeth extraction, RIGHT OVARIAN CYST REMOVAL Alcohol Use: Occasionally Drug Use: Marijuana Adult General Chief Complaint Chief Complaint: LACERATION/AVULSION [facility] HPI Patient is a 21 year old female presents to the emergency department stating she was trying to sharpen a knife using a branch. Patient states that the knife slipped and cut her in the left hand. She has a 1 cm laceration noted at the MIP. Patient has full range of motion of the fingers. She is unsure when her last tetanus immunization occurred. Bleeding is currently controlled. Cap refills less than 2 seconds. Review of Systems Review of Systems Constitutional: Denies fever or chills [] Eyes: Denies change in visual acuity, redness, or eye pain [] HENT: Denies nasal congestion or sore throat [] Respiratory: Denies cough or shortness of breath [] Cardiovascular: No additional information not addressed in HPI [] GI: Denies abdominal pain, nausea, vomiting, bloody stools or diarrhea [] : Denies dysuria or hematuria [] Musculoskeletal: Denies back pain or joint pain [] Integument: Denies rash or skin lesions. Patient with a 1 cm laceration to the left hand Neurologic: Denies headache, focal weakness or sensory changes [] Endocrine: Denies polyuria or polydipsia [] Current Medications Current Medications Current Medications Medications (Trade) Dose Ordered Sig/Maggie Start Time Stop Time Status Last Admin Dose Admin Diphtheria/ Tetanus/Acell Pertussis (Boostrix) 0.5 ml ONCE ONCE 02/16/17 19:00 02/16/17 19:01 DC 02/16/17 19:03 0.5 ML Lidocaine/Sodium Bicarbonate (Buffered Lidocaine 1%) 20 ml 1X ONCE 02/16/17 19:00 02/16/17 19:01 DC 02/16/17 19:02 20 ML Allergies Allergies Allergies Coded Allergies Type Severity Reaction Last Updated Verified No Known Drug Allergies 05/09/16 No Physical Exam Physical Exam Constitutional: Well developed, well nourished, no acute distress, non-toxic appearance. [] HENT: Normocephalic, atraumatic, bilateral external ears normal, oropharynx moist, no oral exudates, nose normal. [] Eyes: PERRLA, EOMI, conjunctiva normal, no discharge. [] Neck: Normal range of motion, no tenderness, supple, no stridor. [] Cardiovascular:Heart rate regular rhythm Lungs & Thorax: No respiratory distress noted Skin: Warm, dry, no erythema, no rash. Patient with a 1 cm laceration noted to the left first upper MIP area. Patient with full range of motion of the hands. 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 There is no bleeding noted from the site. The wound is gaping. Back: No tenderness Extremities: No tenderness, no cyanosis, no clubbing, ROM intact, no edema. [] Neurologic: Alert and oriented X 3, normal motor function, normal sensory function, no focal deficits noted. [] Psychologic: Affect normal, judgement normal, mood normal. [] Current Patient Data Vital Signs Vital Signs Date Time Temp Pulse Resp B/P (MAP) Pulse Ox O2 Delivery O2 Flow Rate FiO2 02/16/17 18:38 98.9 95 16 97 Room Air 98.9 EKG EKG [] Radiology/Procedures Radiology/Procedures [] Course & Med Decision Making Course & Med Decision Making Pertinent Labs and Imaging studies reviewed. (See chart for details) Patient was provided with discharge instructions treatment regimens and follow- up recommendations. She was instructed to use Tylenol or ibuprofen for pain and discomfort ice packs elevation as much as possible keep the area clean and dry. Clean the site twice daily with soap and water. Signs and symptoms of infection was provided to patient. Recommended following up with the primary care physician 7-10 days for suture removal. [] Dragon Disclaimer Dragon Disclaimer This electronic medical record was generated, in whole or in part, using a voice recognition dictation system. Departure Departure Impression: Primary Impression: Laceration of left hand Disposition: HOME, SELF-CARE Condition: STABLE Referrals: NO PCP (PCP) Patient Instructions: Laceration Care, Adult, [id number], Sutured Wound Care , [id number] Additional Instructions: The area clean and dry. Clean the site twice and was soap and water and apply antibiotic ointment to the area. Watch for signs and symptoms of infection: Redness, warmth, tenderness or any yellow/greenish transient become from the site. Follow-up through primary care physician if you develop any signs and symptoms of infection. Sutures out in the next 7-10 days. Tylenol or ibuprofen for pain and discomfort. Follow-up the primary care physician next 7-10 days for suture removal. Return back to emergency department sign symptoms of become worse. Laceration/Wound Repair Laceration/Wound Repair : Wound Location: upper extremity Wound's Depth, Shape: superficial Wound Length (cm): 1 Wound Explored: clean Betadine Prep?: Yes Anesthesia: 1% Lidocaine Volume Anesthetic (ccs): 4 Wound Debrided: minimal Wound Repaired With: sutures Suture Size/Type: 4:0 Number of Sutures: 3 Progress Lidocaine 1% injected into the area with 4 ml injected. Site cleaned with betadine, 4-0 nylon wit 3 interrupted sutures placed. Patient tolerated procedure well. Nursing staff to place sterile dressing on the area. RAVINDER FIERRO EXHIBIT DESIGNER Feb 16, 2017 18:51
[2017-02-16] MEDS ORDERED: DIPHTH,PERTUSS(ACELL),TET TOX 0.5 ML DISP.SYRIN. VAX IM ONE (19:00)
[2017-02-16] MEDS ORDERED: LIDOCAINE 1% / SOD BICARB 8.4% 20 ML VIAL. IJ ONE (19:00)
== END 2017-02-16 19:26 | disposition home or self-care (01) ==
LOC: ER 18:24
DX: S61.412A Laceration without foreign body of left hand, initial encounter (principal); F12.10 Cannabis abuse, uncomplicated; W26.0XXA Contact with knife, initial encounter; Y93.89 Activity, other specified; Y99.8 Other external cause status; Y92.89 Other specified places as the place of occurrence of the external cause
CPT/HCPCS: 12001; 90471; 90715; 99283-25

== ENCOUNTER 2017-08-26 12:27 | Emergency (ER) | payer SELFPAY ==
[~2017-08-26] VITALS: Ht 154.9 cm; Wt 51.7 kg
[~2017-08-26 12:27] MED LIST changes: +NAPR-683 PO; -NAPR500T PO
--- NOTE | 2017-08-26 13:19 | PHYS DOC ---
Past Medical History Past Medical History: Endometriosis, Other Additional Past Medical Histor: PID, ovarian cyst Past Surgical History: Other Additional Past Surgical Histo: wisdom teeth extraction, RIGHT OVARIAN CYST REMOVAL Alcohol Use: Occasionally Drug Use: Marijuana Adult General Chief Complaint Chief Complaint: ABDOMINAL PAIN HPI HPI Patient is a 22 year old female who presents with suprapubic crampy abdominal pain that shoots down her bilateral legs or knees. She states this is same pain she had 18 months ago when she had endometriosis and had to have surgery for this at that time. She states she also had 2 cysts off her ovaries it was removed. She denies any nausea vomiting, she currently states she is on her periods been bleeding went to 4 tampons since 4 AM this morning that were soaked. She denies any lightheadedness dizziness. She spoke with Dr. Griffiths this morning who told her to go to the emergency Department because he can't her in clinic and talked the first a year. Review of Systems Review of Systems Constitutional: Denies fever or chills [] Eyes: Denies change in visual acuity, redness, or eye pain [] HENT: Denies nasal congestion or sore throat [] Respiratory: Denies cough or shortness of breath [] Cardiovascular: No additional information not addressed in HPI [] GI: Denies abdominal pain, nausea, vomiting, bloody stools or diarrhea [] : Denies dysuria or hematuria [] Musculoskeletal: Denies back pain or joint pain [] Integument: Denies rash or skin lesions [] Neurologic: Denies headache, focal weakness or sensory changes [] Endocrine: Denies polyuria or polydipsia [] All other systems were reviewed and found to be within normal limits, except as documented in this note. Current Medications Current Medications Current Medications Medications (Trade) Dose Ordered Sig/Maggie Start Time Stop Time Status Last Admin Dose Admin Morphine Sulfate 2 mg PRN Q15MIN PRN 08/26/17 14:45 08/27/17 14:44 08/26/17 15:45 2 MG Sodium Chloride 1,000 ml @ 1,000 mls/hr 1X ONCE 08/26/17 14:45 08/26/17 15:44 DC 08/26/17 14:54 1,000 MLS/HR Allergies Allergies Allergies Coded Allergies Type Severity Reaction Last Updated Verified No Known Drug Allergies 05/09/16 No Physical Exam Physical Exam Constitutional: Well developed, well nourished, no acute distress, non-toxic appearance. [] HENT: Normocephalic, atraumatic, bilateral external ears normal, oropharynx moist, no oral exudates, nose normal. [] Eyes: PERRLA, EOMI, conjunctiva normal, no discharge. [] Neck: Normal range of motion, no tenderness, supple, no stridor. [] Cardiovascular:Heart rate regular rhythm, no murmur [] Lungs & Thorax: Bilateral breath sounds clear to auscultation [] Abdomen: Bowel sounds normal, soft, no tenderness, no masses, no pulsatile masses. [] Skin: Warm, dry, no erythema, no rash. [] Back: No tenderness, no CVA tenderness. [] Extremities: No tenderness, no cyanosis, no clubbing, ROM intact, no edema. [] Neurologic: Alert and oriented X 3, normal motor function, normal sensory function, no focal deficits noted. [] Psychologic: Affect normal, judgement normal, mood normal. [] Current Patient Data Vital Signs Vital Signs Date Time Temp Pulse Resp B/P (MAP) Pulse Ox O2 Delivery O2 Flow Rate FiO2 08/26/17 16:00 68 18 109/61 (77) 96 Room Air 08/26/17 13:08 98.6 98.6 Lab Values Laboratory Tests Test 08/26/17 13:20 08/26/17 13:30 Urine Test Negative (NEG) Urine Collection Type Unknown Urine Color Yellow Urine Clarity Clear Urine pH 7.5 Urine Specific [place] 1.020 Urine Protein Negative mg/dL (NEG-TRACE) Urine Glucose (UA) Negative mg/dL (NEG) Urine Ketones (Stick) Negative mg/dL (NEG) Urine Blood Large (NEG) Urine Nitrite Negative (NEG) Urine Bilirubin Negative (NEG) Urine Urobilinogen Dipstick 0.2 mg/dL (0.2 mg/dL) Urine Leukocyte Esterase Small (NEG) Urine RBC >40 /HPF (0-2) Urine WBC 1-4 /HPF (0-4) Urine Squamous Epithelial Cells Few /LPF Urine Bacteria Few /HPF (0-FEW) Urine Mucus Mod /LPF Microbiology 08/26/17 Wet Prep - Final, Complete Laboratory Tests Test 08/26/17 13:30 Urine Collection Type Unknown Urine Color Yellow Urine Clarity Clear Urine pH 7.5 Urine Specific [place] 1.020 Urine Protein Negative mg/dL (NEG-TRACE) Urine Glucose (UA) Negative mg/dL (NEG) Urine Ketones (Stick) Negative mg/dL (NEG) Urine Blood Large (NEG) Urine Nitrite Negative (NEG) Urine Bilirubin Negative (NEG) Urine Urobilinogen Dipstick 0.2 mg/dL (0.2 mg/dL) Urine Leukocyte Esterase Small (NEG) Urine RBC >40 /HPF (0-2) Urine WBC 1-4 /HPF (0-4) Urine Squamous Epithelial Cells Few /LPF Urine Bacteria Few /HPF (0-FEW) Urine Mucus Mod /LPF Microbiology 08/26/17 Wet Prep - Final, Complete EKG EKG [] Radiology/Procedures Radiology/Procedures RUN DATE: 08/26/17 PAGE 1 RUN TIME: [id number] [facility] [address] [place] [address] Miles Razo M.D., Rubber Tester PATIENT: BANDAR SANDHU ACCT: [id number] LOC: [facility] U : [id number] AGE/SX: 22/F ROOM: REG : 08/26/[address]: KIRK NGUYỄN MD : 1995 BED: DIS : STATUS: REG ER TLOC: SPEC #: [id number] CASEY: 08/26/17 STATUS: CAROLANN REQ #: [id number] RECD: 08/26/17-1525 [facility] DR: KIRK NGUYỄN MD SOURCE: VAGINAL ENTR: 08/26/17-[address]: [facility]: ORDERED: WET PREP COMMENTS: Has specimen been collected/obtained? Y Procedure Result WET PREP Final YEAST NONE SEEN TRICHOMONAS NONE SEEN CLUE CELLS NONE SEEN WBCS MODERATE RBCS MANY END OF REPORT Impressions: Dysmenorrhea Course & Med Decision Making Course & Med Decision Making Pertinent Labs and Imaging studies reviewed. (See chart for details) Ultrasound does not show any acute abnormality's. She is not . Her pain is improved substantially with IV pain meds. Being discharged home with oxycodone. I spoke with who is agreeable to plan. Patient's a follow- up with Dr. Griffiths. She's been discharged in stable condition at this time. Dragon Disclaimer Dragon Disclaimer This electronic medical record was generated, in whole or in part, using a voice recognition dictation system. Departure Departure Impression: Primary Impression: Dysmenorrhea Disposition: HOME, SELF-CARE Condition: STABLE Referrals: NO PCP (PCP) Patient Instructions: Dysmenorrhea, [id number] Additional Instructions: The ultrasound did not show any acute abnormalities with your ovaries or uterus. Your being discharged home. You can take oxycodone as instructed and as needed for pain. You should follow up with Dr. Griffiths, please call his office and schedule follow-up appointment. Term back to ER if you have severe pain, lightheadedness dizziness, fevers or other concerns. Scripts Oxycodone Hcl (OXYCODONE HCL) 5 Mg Capsule 1 CAP PO TID Y for PAIN, #20 CAP Prov: KIRK NGUYỄN MD 08/26/17 KIRK NGUYỄN MD Aug 26, 2017 13:19
[2017-08-26 13:42] LABS: BILIRUBIN,URINE NEGATIVE (NEG); GLUCOSE,URINE NEGATIVE (NEG); NITRITE,URINE NEGATIVE (NEG); PH,URINE 7.5; PROTEIN,URINE NEGATIVE (NEG-TRACE); UROBILINOGEN,URINE 0.2 mg/dL (0.2 mg/dL)
[2017-08-26 13:52] LABS: BACTERIA,URINE FEW /HPF (0-FEW); RBC,URINE >40 /HPF (0-2); SQUAMOUS EPITHELIAL CELL,UR FEW /LPF
[2017-08-26] MEDS ORDERED: IV NORMAL SALINE 1000ML BAG 1,000 ML IV ONE (14:45)
[2017-08-26] MEDS: MORPHINE SULFATE 2 MG/ML DISP.SYRIN. IV/SQ PRN ×2 (14:57→15:45)
--- NOTE | 2017-08-26 15:25 | RAD ---
Ultrasound pelvis Indication abdominal pain. History of endometriosis. Technique: Grayscale, color Doppler and spectral waveform ultrasound images of the pelvis obtained. Comparison: Previous study from 12/06/2016 Findings: The uterus measures 7.6 x 4.5 x 5.1 cm (longitudinal, AP, transverse). Suggestion of arcuate uterus. The Endometrium in the right aspect of the uterus measures 7 mm. The endometrium in the left aspect of the uterus measures 14 mm. No vascularity seen within the endometrium (image 42, 44). The right ovary measures 2.3 x 1.4 x 2.0 cm without evidence of cystic or solid lesion and demonstrates evidence of blood flow. The left ovary measures 3.1 x 2.1 x 2.2 cm without evidence of solid or cystic lesion and demonstrates evidence of blood flow. Small amount of free pelvic fluid noted. Impression: 1. Suggestion of arcuate uterus. 2. Bilateral ovaries demonstrate no solid or cystic lesions and demonstrates evidence of blood flow.
[2017-08-26 17:00] VITALS: BP 111/69
[2017-08-26] MEDS ORDERED: OXYC5CAP PO (17:03)
[2017-08-26 17:05] LABS: NEG OBC UR NEG; POS OBC UR POS
== END 2017-08-26 17:08 | disposition home or self-care (01) ==
LOC: ER 12:27
DX: N94.6 Dysmenorrhea, unspecified (principal); F12.10 Cannabis abuse, uncomplicated
CPT/HCPCS: 76856; 81001; 81025; 87086; 87491; 87591; 96361; 96374; 96376; 99285; J2270; J7030; Q0111

== ENCOUNTER 2017-10-27 12:09 | Emergency (ER) | payer SELFPAY ==
[2017-10-27 12:51] LABS: URINE HCG POC HCG NEGATIVE (Negative)
[2017-10-27 13:26] LABS: BILIRUBIN,URINE NEGATIVE (NEG); CLARITY,URINE CLEAR; COLOR,URINE YELLOW; GLUCOSE,URINE NEGATIVE (NEG); NITRITE,URINE NEGATIVE (NEG); PROTEIN,URINE NEGATIVE (NEG-TRACE)
[2017-10-27] MEDS ORDERED: KETOROLAC 30 MG/ML INJ. IV ×2 (13:30)
[2017-10-27] MEDS ORDERED: IV NORMAL SALINE 1000ML BAG 1,000 ML IV ×2 (13:30)
[2017-10-27] MEDS ORDERED: HALOPERIDOL LACTATE 5 MG/ML VIAL. IVP ×2 (13:30)
[2017-10-27 13:38] LABS: BACTERIA,URINE 0 /HPF (0-FEW); RBC,URINE 20-40 /HPF (0-2); SQUAMOUS EPITHELIAL CELL,UR MOD /LPF
== END 2017-10-27 13:41 | disposition left against medical advice (07) ==
LOC: ER 13:41
DX: R10.84 Generalized abdominal pain (principal); G89.29 Other chronic pain; R10.2 Pelvic and perineal pain; Z76.5 Malingerer [conscious simulation]; F12.10 Cannabis abuse, uncomplicated
CPT/HCPCS: 81001; 81025; 99283

== ENCOUNTER 2017-12-17 22:56 | Emergency (ER) | payer SELFPAY ==
[2017-12-17 23:25] LABS: ADD MAN DIFF? NO
[2017-12-17 23:27] LABS: POC GLUCOSE 106 mg/dL (70-99)
[2017-12-17 23:29] LABS: BASO % 0 % (0-3); EOS # 0.1 x10^3/uL (0.0-0.7); EOS % 1 % (0-3); HEMATOCRIT 39.7 % (36.0-47.0); HEMOGLOBIN 13.4 g/dL (12.0-15.5); LYMPH # 1.9 x10^3/uL (1.0-4.8); LYMPH % 25 % (24-48); MEAN CORPUSCULAR HEMOGLOBIN 30 pg (25-35); MEAN CORPUSCULAR HGB CONC 34 g/dL (31-37); MEAN CORPUSCULAR VOLUME 90 fL (79-100); MONO # 0.7 x10^3/uL (0.0-1.1); MONO % 9 % (0-9); NEUT # 4.9 x10^3uL (1.8-7.7); NEUT % 64 % (31-73); PLATELET COUNT 225 x10^3/uL (140-400); RED BLOOD COUNT 4.41 x10^6/uL (3.50-5.40); RED CELL DISTRIBUTION WIDTH 13.7 % (11.5-14.5); WHITE BLOOD COUNT 7.6 x10^3/uL (4.0-11.0)
[2017-12-17 23:36] LABS: ANION GAP 17 (6-14); BLOOD UREA NITROGEN 11 mg/dL (7-20); BUN/CREATININE RATIO 11 (6-20); CALCIUM 8.9 mg/dL (8.5-10.1); CARBON DIOXIDE 19 mmol/L (21-32); CHLORIDE 104 mmol/L (98-107); GLUCOSE 110 mg/dL (70-99); POTASSIUM 3.5 mmol/L (3.5-5.1); SODIUM 140 mmol/L (136-145)
[2017-12-17 23:43] LABS: ALBUMIN 3.8 g/dL (3.4-5.0); ALK PHOS 66 U/L (46-116); ALT (SGPT) 15 U/L (14-59); AST (SGOT) 18 U/L (15-37); TOTAL BILIRUBIN 0.3 mg/dL (0.2-1.0); TOTAL PROTEIN 7.7 g/dL (6.4-8.2)
[2017-12-17 23:43] LABS: ETHANOL < 10 mg/dL (0-10)
[2017-12-18 00:04] LABS: BARBITURATES NEG (NEG); BENZODIAZEPINES POS (NEG); CANNABINOIDS POS (NEG); COCAINE NEG (NEG); METHADONE NEG (NEG); OPIATES NEG (NEG); PHENCYCLIDINE NEG (NEG)
[2017-12-18 00:05] LABS: AMPHETAMINE/METHAMPHETAMINE POS (NEG); ETHANOL, URINE NEG (NEG)
== END 2017-12-18 00:54 | disposition home or self-care (01) ==
LOC: ER 12-18 00:54
DX: R56.9 Unspecified convulsions (principal); F12.10 Cannabis abuse, uncomplicated; F17.210 Nicotine dependence, cigarettes, uncomplicated
CPT/HCPCS: 36415; 70450; 72125; 80053; 80307; 82962; 84702; 85025; 99285-25; G0480

== ENCOUNTER 2018-03-21 13:27 | Emergency (ER) | payer OTHER ==
[2018-03-21 14:35] LABS: BILIRUBIN,URINE NEGATIVE (NEG); CLARITY,URINE CLEAR; COLOR,URINE YELLOW; GLUCOSE,URINE NEGATIVE (NEG); NITRITE,URINE NEGATIVE (NEG); PH,URINE 7.5; PROTEIN,URINE NEGATIVE (NEG-TRACE); UROBILINOGEN,URINE 0.2 mg/dL (0.2 mg/dL)
[2018-03-21 14:36] LABS: BACTERIA,URINE FEW /HPF (0-FEW); RBC,URINE 0 /HPF (0-2); SQUAMOUS EPITHELIAL CELL,UR FEW /LPF; WBC,URINE 0 /HPF (0-4)
[2018-03-21 15:12] LABS: ADD MAN DIFF? NO
[2018-03-21 15:16] LABS: BASO % 0 % (0-3); EOS # 0.2 x10^3/uL (0.0-0.7); EOS % 1 % (0-3); HEMATOCRIT 32.4 % (36.0-47.0); HEMOGLOBIN 11.3 g/dL (12.0-15.5); LYMPH # 1.9 x10^3/uL (1.0-4.8); LYMPH % 16 % (24-48); MEAN CORPUSCULAR HEMOGLOBIN 32 pg (25-35); MEAN CORPUSCULAR HGB CONC 35 g/dL (31-37); MEAN CORPUSCULAR VOLUME 92 fL (79-100); MONO # 0.9 x10^3/uL (0.0-1.1); MONO % 8 % (0-9); NEUT # 9.2 x10^3uL (1.8-7.7); NEUT % 75 % (31-73); PLATELET COUNT 224 x10^3/uL (140-400); RED BLOOD COUNT 3.53 x10^6/uL (3.50-5.40); RED CELL DISTRIBUTION WIDTH 14.5 % (11.5-14.5); WHITE BLOOD COUNT 12.2 x10^3/uL (4.0-11.0)
[2018-03-21 15:31] LABS: ANION GAP 8 (6-14); BLOOD UREA NITROGEN 8 mg/dL (7-20); BUN/CREATININE RATIO 20 (6-20); CALCIUM 8.1 mg/dL (8.5-10.1); CARBON DIOXIDE 24 mmol/L (21-32); CHLORIDE 103 mmol/L (98-107); CREATININE 0.4 mg/dL (0.6-1.0); GFR 201.5; GLUCOSE 87 mg/dL (70-99); POTASSIUM 3.5 mmol/L (3.5-5.1); SODIUM 135 mmol/L (136-145)
[2018-03-21 15:37] LABS: ALBUMIN 2.7 g/dL (3.4-5.0); ALBUMIN/GLOBULIN RATIO 0.8 (1.0-1.7); ALK PHOS 57 U/L (46-116); ALT (SGPT) 19 U/L (14-59); AST (SGOT) 18 U/L (15-37); TOTAL BILIRUBIN 0.2 mg/dL (0.2-1.0); TOTAL PROTEIN 6.2 g/dL (6.4-8.2)
[2018-03-24 20:10] LABS: CHLAMYDIA PROBE Negative (Negative); GC PROBE Negative (Negative)
== END 2018-03-21 17:25 | disposition home or self-care (01) ==
LOC: ER 17:25
DX: O46.92 Antepartum hemorrhage, unspecified, second trimester (principal); O23.592 Infection of other part of genital tract in pregnancy, second trimester; N76.0 Acute vaginitis; B96.89 Other specified bacterial agents as the cause of diseases classified elsewhere; Z3A.16 16 weeks gestation of pregnancy
CPT/HCPCS: 36415; 76805; 80053; 81001; 84702; 85025; 86850; 86900; 86901; 87491; 87591; 99285-25; Q0111

== ENCOUNTER → 2018-04-21 | Outpatient (CLI) | payer OTHER ==
[2018-03-21 17:17] VITALS: BP 94/52
[~2018-04-21] MED LIST changes: +OXYC5CAP PO
[2018-04-21 11:31] LABS: BASO % 0 % (0-3); EOS # 0.2 x10^3/uL (0.0-0.7); EOS % 1 % (0-3); HEMATOCRIT 36.5 % (36.0-47.0); HEMOGLOBIN 12.3 g/dL (12.0-15.5); LYMPH # 1.7 x10^3/uL (1.0-4.8); LYMPH % 13 % (24-48); MEAN CORPUSCULAR HEMOGLOBIN 32 pg (25-35); MEAN CORPUSCULAR HGB CONC 34 g/dL (31-37); MEAN CORPUSCULAR VOLUME 95 fL (79-100); MONO # 0.8 x10^3/uL (0.0-1.1); MONO % 6 % (0-9); NEUT # 10.4 x10^3uL (1.8-7.7); NEUT % 79 % (31-73); PLATELET COUNT 242 x10^3/uL (140-400); RED BLOOD COUNT 3.86 x10^6/uL (3.50-5.40); RED CELL DISTRIBUTION WIDTH 14.5 % (11.5-14.5); WHITE BLOOD COUNT 13.2 x10^3/uL (4.0-11.0)
[2018-04-21 11:54] LABS: ALBUMIN/GLOBULIN RATIO 0.8 (1.0-1.7); CALCIUM 8.4 mg/dL (8.5-10.1); CREATININE 0.5 mg/dL (0.6-1.0); GFR 155.7; POTASSIUM 3.4 mmol/L (3.5-5.1); TOTAL BILIRUBIN 0.2 mg/dL (0.2-1.0); TOTAL PROTEIN 6.9 g/dL (6.4-8.2)
[2018-04-21 11:59] LABS: FREE T4 0.87 ng/dL (0.76-1.46); THYROID STIM HORMONE (TSH) 1.827 uIU/mL (0.358-3.74)
== END | disposition home or self-care (01) ==
LOC: LAB 10:11
PROVIDERS: ATTEND Obstetrics & Gynecology
DX: O09.92 Supervision of high risk pregnancy, unspecified, second trimester (principal); Z3A.20 20 weeks gestation of pregnancy
CPT/HCPCS: 36415; 80053; 84439; 84443; 84479; 85025

== ENCOUNTER 2018-06-08 11:36 | Observation (INO) | payer OTHER ==
[2018-03-21 17:17] VITALS: BP 94/52
[2018-06-08] MEDS ORDERED: IV RINGERS,LACTATED 1000ML 1,000 ML IV SCH (12:11)
[2018-06-08 12:22] LABS: BILIRUBIN,URINE NEGATIVE (NEG); CLARITY,URINE CLEAR; COLOR,URINE YELLOW; NITRITE,URINE NEGATIVE (NEG); PH,URINE 7.5; PROTEIN,URINE NEGATIVE (NEG-TRACE); UROBILINOGEN,URINE 0.2 mg/dL (0.2 mg/dL)
[2018-06-08 12:32] LABS: BACTERIA,URINE MANY /HPF (0-FEW); RBC,URINE 0 /HPF (0-2); SQUAMOUS EPITHELIAL CELL,UR MANY /LPF
[2018-06-08 14:05] LABS: BARBITURATES NEG (NEG); BENZODIAZEPINES NEG (NEG); CANNABINOIDS NEG (NEG); COCAINE NEG (NEG); METHADONE NEG (NEG); OPIATES NEG (NEG); PHENCYCLIDINE NEG (NEG)
[2018-06-08 14:06] LABS: AMPHETAMINE/METHAMPHETAMINE NEG (NEG)
== END 2018-06-08 14:00 | disposition home or self-care (01) ==
LOC: 3 SO LND 11:36
PROVIDERS: ADMIT Obstetrics & Gynecology; ATTEND Obstetrics & Gynecology
DX: O26.892 Other specified pregnancy related conditions, second trimester (principal); R10.9 Unspecified abdominal pain; Z3A.27 27 weeks gestation of pregnancy; Z79.899 Other long term (current) drug therapy
CPT/HCPCS: 36415; 80307; 81001; 82731; 87086; G0378; G0379; G0479

== ENCOUNTER 2019-08-16 11:54 | Emergency (ER) | payer OTHER ==
[~2019-08-16] VITALS: Ht 154.9 cm; Wt 59.0 kg
[~2019-08-16 11:54] MED LIST changes: +DOXY-96 PO; -DOXY100T9 PO; -HYDR-2758 PO; +HYDR-2761 PO
[2019-08-16 12:06] VITALS: BP 122/58
[2019-08-16 12:25] LABS: BILIRUBIN,URINE NEGATIVE (NEG); CLARITY,URINE CLEAR; COLOR,URINE YELLOW; NITRITE,URINE NEGATIVE (NEG); PROTEIN,URINE NEGATIVE (NEG-TRACE); UROBILINOGEN,URINE 0.2 mg/dL (0.2 mg/dL)
--- NOTE | 2019-08-16 12:29 | PHYS DOC ---
Past Medical History Past Medical History: Endometriosis, Seizure Additional Past Medical Histor: OVARIAN CYSTS Past Surgical History: , Other Additional Past Surgical Histo: CYST REMOVAL, ENDOMETRIOSIS Alcohol Use: None Drug Use: None Adult General Chief Complaint Chief Complaint: VAGINAL BLEEDING [facility] HPI Patient is a 24 year old female patient with history of endometriosis who presents with complaint of vaginal bleeding during . Patient is at 6 weeks of gestation with LMP of June 28 with complaining of bilateral rib cage pain for 1 week that getting force with movement. Patient states she had bright red blood when she wiped herself this morning without need to use a pad. She denies fever and chills, cramping abdominal pain, urinary symptom. Patient states she started to have cough today. Review of Systems Review of Systems Constitutional: Denies fever or chills [] Eyes: Denies change in visual acuity, redness, or eye pain [] HENT: Denies nasal congestion or sore throat [] Respiratory: Denies cough or shortness of breath [] Cardiovascular: No additional information not addressed in HPI [] GI: Reports abdominal pain, denies nausea, vomiting, bloody stools or diarrhea [] : Denies dysuria or hematuria [] Musculoskeletal: Denies back pain or joint pain [] Integument: Denies rash or skin lesions [] Neurologic: Denies headache, focal weakness or sensory changes [] Endocrine: Denies polyuria or polydipsia [] All other systems were reviewed and found to be within normal limits, except as documented in this note. Current Medications Current Medications Current Medications Medications (Trade) Dose Ordered Sig/Maggie Start Time Stop Time Status Last Admin Dose Admin Sodium Chloride 1,000 ml @ 1,000 mls/hr Q1H 08/16/19 12:30 08/16/19 13:29 DC 08/16/19 13:31 1,000 MLS/HR Allergies Allergies Allergies Coded Allergies Type Severity Reaction Last Updated Verified No Known Drug Allergies 05/09/16 No Physical Exam Physical Exam Constitutional: Well developed, well nourished, no acute distress, non-toxic appearance. [] HENT: Normocephalic, atraumatic, bilateral external ears normal, oropharynx moist, no oral exudates, nose normal. [] Eyes: PERRLA, EOMI, conjunctiva normal, no discharge. [] Neck: Normal range of motion, no tenderness, supple, no stridor. [] Cardiovascular:Heart rate regular rhythm, no murmur [] Lungs & Thorax: Bilateral breath sounds clear to auscultation [] Abdomen: Bowel sounds normal, soft, no tenderness, no masses, no pulsatile masses. [] Skin: Warm, dry, no erythema, no rash. [] Back: No tenderness, no CVA tenderness. [] Extremities: No tenderness, no cyanosis, no clubbing, ROM intact, no edema. [] Neurologic: Alert and oriented X 3, normal motor function, normal sensory function, no focal deficits noted. [] Psychologic: Affect normal, judgement normal, mood normal. [] Current Patient Data Vital Signs Vital Signs Date Time Temp Pulse Resp B/P (MAP) Pulse Ox O2 Delivery O2 Flow Rate FiO2 08/16/19 12:06 98.1 65 16 122/58 (79) 96 Room Air 98.1 Lab Values Laboratory Tests Test 08/16/19 12:10 08/16/19 12:20 POC Urine HCG, Qualitative Hcg positive (Negative) White Blood Count 8.2 x10^3/uL (4.0-11.0) Red Blood Count 4.27 x10^6/uL (3.50-5.40) Hemoglobin 12.2 g/dL (12.0-15.5) Hematocrit 37.0 % (36.0-47.0) Mean Corpuscular Volume 87 fL (79-100) Mean Corpuscular Hemoglobin 29 pg (25-35) Mean Corpuscular Hemoglobin Concent 33 g/dL (31-37) Red Cell Distribution Width 16.0 % (11.5-14.5) H Platelet Count 301 x10^3/uL (140-400) Neutrophils (%) (Auto) 67 % (31-73) Lymphocytes (%) (Auto) 21 % (24-48) L Monocytes (%) (Auto) 9 % (0-9) Eosinophils (%) (Auto) 3 % (0-3) Basophils (%) (Auto) 0 % (0-3) Neutrophils # (Auto) 5.5 x10^3/uL (1.8-7.7) Lymphocytes # (Auto) 1.7 x10^3/uL (1.0-4.8) Monocytes # (Auto) 0.7 x10^3/uL (0.0-1.1) Eosinophils # (Auto) 0.3 x10^3/uL (0.0-0.7) Basophils # (Auto) 0.0 x10^3/uL (0.0-0.2) Urine Collection Type Unknown Urine Color Yellow Urine Clarity Clear Urine pH 7.0 Urine Specific [place] 1.020 Urine Protein Negative mg/dL (NEG-TRACE) Urine Glucose (UA) Negative mg/dL (NEG) Urine Ketones (Stick) Negative mg/dL (NEG) Urine Blood Negative (NEG) Urine Nitrite Negative (NEG) Urine Bilirubin Negative (NEG) Urine Urobilinogen Dipstick 0.2 mg/dL (0.2 mg/dL) Urine Leukocyte Esterase Moderate (NEG) Urine RBC 0 /HPF (0-2) Urine WBC 5-10 /HPF (0-4) Urine Squamous Epithelial Cells Many /LPF Urine Bacteria Few /HPF (0-FEW) Urine Mucus Mod /LPF Maternal Serum HCG Beta Subunit 17208 mIU/mL (0-5) H Sodium Level 136 mmol/L (136-145) Potassium Level 3.7 mmol/L (3.5-5.1) Chloride Level 104 mmol/L (98-107) Carbon Dioxide Level 26 mmol/L (21-32) Anion Gap 6 (6-14) Blood Urea Nitrogen 8 mg/dL (7-20) Creatinine 0.6 mg/dL (0.6-1.0) Estimated GFR (Cockcroft-Gault) 123.9 Glucose Level 88 mg/dL (70-99) Calcium Level 8.5 mg/dL (8.5-10.1) Laboratory Tests 08/16/19 12:20 Laboratory Tests 08/16/19 12:20 EKG EKG [] Radiology/Procedures Radiology/Procedures [][facility] [address] [place], [place] [id number] IMAGING REPORT Signed PATIENT: BANDAR SANDHU ACCOUNT: [id number] : 1995 LOCATION: ER AGE: 24 SEX: F EXAM STATUS: REG ER ORD. PHYSICIAN: JOSIE CHUNG MD REASON: vaginal bleeding PROCEDURE: OB <14 WKS W/TV Examination: OB <14 WKS W/TV History: Vaginal bleeding, endometriosis Comparison/Correlation: Ultrasound exam 03/03/2018, pelvic ultrasound 10 12/06/2016 Findings: Transabdominal and transvaginal pelvic ultrasound was performed. Uterus measures 9.6 cm x 3.3 cm x 9.9 cm. Myometrium is normal. There is subchorionic hemorrhage measuring 1.4 cm x 1.3 cm x 1.4 cm superiorly involving the uterus. Intrauterine gestational sac is present with pole having a heart rate is 115 beats per minute. Sac is identified. Colp-rump length of the pole is 0.4 cm corresponding to 6 weeks 1 day gestation and EDC by ultrasound of 04/09/2020. Fluid in the uterine cervix is present. Fluid within the cul-de-sac is present. Right maternal ovary measures 3 cm x 1.77 x 2.8 cm. Left ovary measures 2.4 cm x 1.8 cm x 2.3 cm. Adnexal follicles are present. Impression: Subchorionic hemorrhage. Single living intrauterine gestation with crown-rump length corresponding to 6 weeks 1 day. Pelvic free fluid is presumably physiologic. Minimal fluid within the uterine cervix noted. Electronically signed by: Yogi Steinberg MD (08/16/2019 1:39 PM) [facility] DICTATED and SIGNED BY: YOGI STEINBERG MD DATE: 08/16/19 133 Course & Med Decision Making Course & Med Decision Making Pertinent Labs and Imaging studies reviewed. (See chart for details) Evaluation of patient in ER showed 24-year-old female patient with blood type of A+ and complaining of vaginal spotting during . Patient had unremarkable exam. Patient did not have vaginal bleeding she was in ER. Labs showed mild UTI. Ultrasound showed small subchorionic hemorrhage with single intrauterine . HCG level was more than 50,000. Patient was advised to follow-up with her DIRECTOR OF OUTREACH and have pelvic rest Dragon Disclaimer Dragon Disclaimer This electronic medical record was generated, in whole or in part, using a voice recognition dictation system. Departure Departure Impression: Primary Impression: Threatened Additional Impression: Urinary tract infection Disposition: HOME, SELF-CARE (@[id number]) Condition: IMPROVED Referrals: NO PCP (PCP) Patient Instructions: - Urinary Tract Infection, Threatened Misca rriage Additional Instructions: Drink plenty of liquids Follow-up with your DIRECTOR OF OUTREACH doctor in 2 days Return to ER if not getting better Scripts Cephalexin (KEFLEX) 500 Mg Capsule 1 CAP PO Q8HRS, #21 CAP 0 Refills Prov: JOSIE CHUNG MD 08/16/19 Problem Qualifiers Additional Impression: Urinary tract infection Urinary tract infection type: site unspecified Hematuria presence: without hematuria Qualified Codes: N39.0 - Urinary tract infection, site not specified JOSIE CHUNG MD Aug 16, 2019 12:29
[2019-08-16] MEDS ORDERED: IV NORMAL SALINE 1000ML BAG 1,000 ML IV SCH (12:30)
[2019-08-16 12:34] LABS: BASO % 0 % (0-3); EOS # 0.3 x10^3/uL (0.0-0.7); EOS % 3 % (0-3); HEMOGLOBIN 12.2 g/dL (12.0-15.5); LYMPH # 1.7 x10^3/uL (1.0-4.8); LYMPH % 21 % (24-48); MEAN CORPUSCULAR HEMOGLOBIN 29 pg (25-35); MEAN CORPUSCULAR HGB CONC 33 g/dL (31-37); MEAN CORPUSCULAR VOLUME 87 fL (79-100); MONO # 0.7 x10^3/uL (0.0-1.1); MONO % 9 % (0-9); NEUT # 5.5 x10^3/uL (1.8-7.7); NEUT % 67 % (31-73); PLATELET COUNT 301 x10^3/uL (140-400); RED BLOOD COUNT 4.27 x10^6/uL (3.50-5.40); WHITE BLOOD COUNT 8.2 x10^3/uL (4.0-11.0)
[2019-08-16 12:45] LABS: SQUAMOUS EPITHELIAL CELL,UR MANY /LPF
[2019-08-16 12:47] LABS: BACTERIA,URINE FEW /HPF (0-FEW); CALCIUM 8.5 mg/dL (8.5-10.1); CREATININE 0.6 mg/dL (0.6-1.0); GFR 123.9; POTASSIUM 3.7 mmol/L (3.5-5.1); RBC,URINE 0 /HPF (0-2)
--- NOTE | 2019-08-16 13:42 | RAD ---
Examination: OB <14 WKS W/TV History: Vaginal bleeding, endometriosis Comparison/Correlation: Ultrasound exam 03/03/2018, pelvic ultrasound 10 12/06/2016 Findings: Transabdominal and transvaginal pelvic ultrasound was performed. Uterus measures 9.6 cm x 3.3 cm x 9.9 cm. Myometrium is normal. There is subchorionic hemorrhage measuring 1.4 cm x 1.3 cm x 1.4 cm superiorly involving the uterus. Intrauterine gestational sac is present with pole having a heart rate is 115 beats per minute. Sac is identified. [place]-rump length of the pole is 0.4 cm corresponding to 6 weeks 1 day gestation and EDC by ultrasound of 04/09/2020. Fluid in the uterine cervix is present. Fluid within the cul-de-sac is present. Right maternal ovary measures 3 cm x 1.77 x 2.8 cm. Left ovary measures 2.4 cm x 1.8 cm x 2.3 cm. Adnexal follicles are present. Impression: Subchorionic hemorrhage. Single living intrauterine gestation with crown-rump length corresponding to 6 weeks 1 day. Pelvic free fluid is presumably physiologic. Minimal fluid within the uterine cervix noted. Electronically signed by: Yogi Obrien MD (08/16/2019 1:39 PM) [facility]
[2019-08-16] MEDS ORDERED: CEPH-264 PO (13:58)
== END 2019-08-16 14:30 | disposition home or self-care (01) ==
LOC: ER 11:54
DX: O20.0 Threatened abortion (principal); Z3A.01 Less than 8 weeks gestation of pregnancy; O23.41 Unspecified infection of urinary tract in pregnancy, first trimester; R07.81 Pleurodynia; R05 Cough
CPT/HCPCS: 36415; 76801; 76817; 80048; 81001; 81025; 84702; 85025; 87086; 99285; J7030

== ENCOUNTER 2019-12-21 21:10 | Emergency (ER) | payer OTHER ==
[~2019-12-21] VITALS: Ht 154.9 cm; Wt 56.8 kg
[~2019-12-21 21:10] MED LIST changes: +CEPH-264 PO
--- NOTE | 2019-12-21 21:37 | PHYS DOC ---
Past Medical History Past Medical History: Endometriosis, Seizure Additional Past Medical Histor: OVARIAN CYSTS (BONITA BLAKE APRN) Past Surgical History: , Other Additional Past Surgical Histo: CYST REMOVAL, ENDOMETRIOSIS (BONITA BLAKE APRN) Smoking Status: Never Smoker Alcohol Use: None Drug Use: None (BONITA BLAKE APRN) General Adult EDM: Chief Complaint: SEIZURE HPI: HPI: Patient is a 24 year old female who was brought to the emergency department via EMS after suffering a seizure at home. Patient is currently 6 months . She was sitting on the couch speaking with her child's father when she suddenly began shaking all over and fell off the couch. The episode lasted approximately 1 minute per EMS. Patient was postictal on EMS arrival and continues to be confused to time and date in the ER. Patient significant other states that the patient stopped taking her seizure medications when she found out she was she also has a history of anxiety and has not been taking her anxiety medication. Patient reports 3 loose teeth that are bleeding to the lower anterior jaw. Her only complaint is pain to her lower teeth and jaw where her teeth are loose. She denies any neck or back pain. Patient denies any fever, cough, shortness of breath, nausea, vomiting, diarrhea, chest pain, or palpitations. (BONITA BLAKE APRN) Review of Systems: Review of Systems: Complete ROS is negative unless otherwise noted in HPI. (BONITA BLAKE APRN) Heart Score: Risk Factors: Risk Factors: DM, Current or recent (<one month) smoker, HTN, HLP, family history of CAD, obesity. Risk Scores: Score 0 - 3: 2.5% MACE over next 6 weeks - Discharge Home Score 4 - 6: 20.3% MACE over next 6 weeks - Admit for Clinical Observation Score 7 - 10: 72.7% MACE over next 6 weeks - Early Invasive Strategies (BONITA BLAKE APRN) Allergies: Allergies: Allergies Coded Allergies Type Severity Reaction Last Updated Verified No Known Drug Allergies 05/09/16 No (BONITA BLAKE APRN) Physical Exam: PE: Constitutional: Well developed, well nourished, no acute distress, non-toxic appearance. [] HENT: Normocephalic, bilateral external ears normal, oropharynx moist, no oral exudates, nose normal; three loose teeth with gingival bleeding and deformity to mandible, no missing teeth. [] Eyes: PERRLA, EOMI, conjunctiva normal, no discharge. [] Neck: Normal range of motion, no tenderness, supple, no stridor. [] Cardiovascular:Heart rate regular rhythm Lungs & Thorax: Bilateral breath sounds clear to auscultation, Respirations even and unlabored, no retractions, no respiratory distress[] Abdomen: Bowel sounds normal, soft, no tenderness, no masses, no pulsatile masses. [] Skin: Warm, dry, no erythema, no rash. [] Back: No tenderness Extremities: No tenderness, no cyanosis, no clubbing, ROM intact, no edema. [] Neurologic: Alert and oriented X 2, normal motor function, normal sensory function, no focal deficits noted, postictal, confused to date and time.. [] Psychologic: Affect normal, judgement normal, mood normal. [] (BONITA BLAKE APRN) EKG: EKG: [] (BONITA BLAKE APRN) Radiology/Procedures: Radiology/Procedures: [] (BONITA BLAKE APRN) Course & Med Decision Making: Course & Med Decision Making Pertinent Labs and Imaging studies reviewed. (See chart for details) Patient is a 24-year-old female was brought to the emergency department by EMS after having a witnessed seizure at home. The witness at the home stated that the patient has not been taking seizure medication since she found out she was . She also has a history of anxiety and has not been taking medication for her anxiety. Patient was on the couch when she had a seizure that lasted approximately 1 minute, patient fell from the couch to the floor. Patient had 3 loose teeth noted to the mandible after the seizure. Patient was postictal on arrival to the ER. I ordered IV with a liter of normal saline, 1 mg of Ativan, CBC, CMP, UA, and urine drug screen. Patient was placed in seizure precautions and monitoring was requested from the OB unit to complete in the ER. Report given to Dr. Chung at 2145 who assumed care of this patient. [] (BONITA BLAKE APRN) Course & Med Decision Making Patient care transferred to md at 2200. Dr. Dailey was consulted at 22-40 and stated he is okay to continue Lamictal in . Patient does not know the dose of her medication was advised to follow-up with her [employer] in the morning for finding the dose of medication and prescription of seizure medication. Patient treated with 1 dose of Lamictal 100 mg in ER. Patient also complaining of headache and throat pain and treated with Tylenol in ER after had a dose of morphine earlier. Potassium was 3.3 and patient treated with 1 dose of potassium in ER. Patient had heart rate of 160s and was advised to follow-up with her [employer]. Patient tolerated oral intake. I've spoken with the patient and/or caregivers. I've explained the patient's condition, diagnosis and treatment plan based on information available to me at this time. I've answered the patient's and/or caregivers questions and addressed any concerns. The patient and/or caregivers have a good understanding the patient's diagnosis, condition and treatment plan as can be expected at this point. Vital signs have been stabilized. The patient's condition is stable for discharge from the emergency department. The patient will pursue further outpatient evaluation with her primary care provider or other designated consulting physician as outlined in the discharge instructions. Patient and/or caregivers are agreeable to this plan of care and follow-up instructions have been explained in detail. The patient and/or caregivers have received these instructions in written format and expressed understanding of these discharge instructions. The patient and her caregivers are aware that if any significant change in condition or worsening of symptoms should prompt him to immediately return to this of the closest emergency department. If an emergent department is not readily available I would encourage him to call 911. (JOSIE CHUNG MD) [place] Disclaimer: Ledy Disclaimer: This electronic medical record was generated, in whole or in part, using a voice recognition dictation system. (BONITA BLAKE APRN) Departure Departure Impression: Primary Impression: Seizure disorder Additional Impressions: Currently Qualified Codes: Z3A.24 - 24 weeks gestation of Dental injury Qualified Codes: S09.93XS - Unspecified injury of face, sequela Hypokalemia Noncompliance Disposition: HOME, SELF-CARE (At 2307) Condition: IMPROVED Referrals: NO PCP (PCP) ARTURO GIBBS Jr, MD Patient Instructions: ABCs of , Dental Injury, Hypokalemia, Seizure, Adult Additional Instructions: Drink plenty of liquids Follow-up with your physician in the morning for prescription of seizure medication Follow-up with your dentist in the morning for dental injury Return to ER if not getting better Thank you for visiting [facility]. We appreciate you trusting us with your care. If any additional problems come up don't hesitate to return to visit us. Please follow up with your primary care provider so they can plan maged tional care if needed and know about the problem that you had. If symptoms worsen come back to the Emergency Department. Any concerning symptoms that start such as chest pain, shortness of air, weakness or numbness on one side of the body, running high fevers or any other concerning symptoms return to the ER. BONITA BLAKE APRN Dec 21, 2019 21:37 JOSIE CHUNG MD Dec 21, 2019 23:10
[2019-12-21] MEDS ORDERED: ONDANSETRON PF 4 MG/2 ML VIAL. ONE (21:48)
[2019-12-21] MEDS ORDERED: MORPHINE SULFATE 4 MG/ML VIAL. ONE (21:48)
[2019-12-21] MEDS ORDERED: IV NORMAL SALINE 1000ML BAG 1,000 ML IV ONE (22:00)
[2019-12-21 22:03] LABS: BASO # 0.1 x10^3/uL (0.0-0.2); BASO % 1 % (0-3); EOS # 0.2 x10^3/uL (0.0-0.7); EOS % 1 % (0-3); HEMATOCRIT 32.2 % (36.0-47.0); HEMOGLOBIN 10.8 g/dL (12.0-15.5); LYMPH # 2.4 x10^3/uL (1.0-4.8); LYMPH % 15 % (24-48); MEAN CORPUSCULAR HEMOGLOBIN 31 pg (25-35); MEAN CORPUSCULAR HGB CONC 34 g/dL (31-37); MEAN CORPUSCULAR VOLUME 91 fL (79-100); MONO # 1.1 x10^3/uL (0.0-1.1); MONO % 7 % (0-9); NEUT % 76 % (31-73); PLATELET COUNT 247 x10^3/uL (140-400); RED BLOOD COUNT 3.56 x10^6/uL (3.50-5.40); RED CELL DISTRIBUTION WIDTH 14.6 % (11.5-14.5); WHITE BLOOD COUNT 15.8 x10^3/uL (4.0-11.0)
[2019-12-21 22:11] LABS: BILIRUBIN,URINE NEGATIVE (NEG); CLARITY,URINE CLEAR; COLOR,URINE YELLOW; NITRITE,URINE NEGATIVE (NEG); PROTEIN,URINE NEGATIVE (NEG-TRACE); UROBILINOGEN,URINE 0.2 mg/dL (0.2 mg/dL)
[2019-12-21 22:12] LABS: CREATININE 0.6 mg/dL (0.6-1.0); GFR 123.9; POTASSIUM 3.3 mmol/L (3.5-5.1)
[2019-12-21] MEDS ORDERED: ONDANSETRON PF 4 MG/2 ML VIAL. IV ONE (22:15)
[2019-12-21] MEDS ORDERED: MORPHINE SULFATE 4 MG/ML VIAL. IV ONE (22:15)
[2019-12-21 22:16] LABS: BARBITURATES NEG (NEG); BENZODIAZEPINES POS (NEG); CANNABINOIDS NEG (NEG); COCAINE NEG (NEG); METHADONE NEG (NEG); OPIATES NEG (NEG); PHENCYCLIDINE NEG (NEG)
[2019-12-21 22:17] LABS: AMPHETAMINE/METHAMPHETAMINE NEG (NEG)
[2019-12-21 22:18] LABS: ALBUMIN 2.4 g/dL (3.4-5.0); ALBUMIN/GLOBULIN RATIO 0.6 (1.0-1.7); TOTAL BILIRUBIN 0.1 mg/dL (0.2-1.0); TOTAL PROTEIN 6.1 g/dL (6.4-8.2)
[2019-12-21 22:23] LABS: BACTERIA,URINE FEW /HPF (0-FEW); SQUAMOUS EPITHELIAL CELL,UR MOD /LPF
[2019-12-21 23:00] VITALS: BP 94/53
[2019-12-21] MEDS ORDERED: ACETAMINOPHEN 500 MG TABLET PO ONE (23:00)
[2019-12-21] MEDS ORDERED: POTASSIUM CHLORIDE 20 MEQ TABLET.ER. PO ONE (23:00)
[2019-12-21] MEDS ORDERED: lamoTRIgine 100 MG TABLET. PO ONE (23:00)
== END 2019-12-21 23:17 | disposition home or self-care (01) ==
LOC: ER 21:10
DX: O26.892 Other specified pregnancy related conditions, second trimester (principal); S09.8XXD Other specified injuries of head, subsequent encounter; G40.909 Epilepsy, unspecified, not intractable, without status epilepticus; E87.6 Hypokalemia; Z98.890 Other specified postprocedural states; Z3A.24 24 weeks gestation of pregnancy; W19.XXXD Unspecified fall, subsequent encounter
CPT/HCPCS: 36415; 80053; 80307; 81001; 85025; 87086; 96361; 96374; 96375; 99285; J2060; J2270; J2405; J7030

== ENCOUNTER → 2020-01-05 | Outpatient (CLI) | payer OTHER ==
[2019-12-21 23:00] VITALS: BP 94/53
--- NOTE | 2020-01-05 09:49 | RAD ---
OB ultrasonogram third trimester HISTORY: Uterine size and date discrepancy Sonographic examination appearance was performed and multiple static images were obtained. There is a cephalic position. The maternal cervix appears normal measures 5.5 cm. There is a single live anterior the heartbeat is confirmed at 140 beats for minute. Visualization of structures is limited due to the advanced gestational age. The heart kidneys spine posterior fossa and stomach appear normal. The amniotic fluid volume appears normal dynamic fluid index is 11.6. The LMP of 06/27/2019 corresponds with a 27 week 2 day gestational age and estimated date of confinement of April 03, 2020. This may size by ultrasound is 25 weeks 6 days with estimated date confinement 04/13/2020. Estimated weight is 2 pounds +/- 5 ounces Estimated weight percentile is 34 percent. Measurements are as follows: BPD: 6.2 cm 25 weeks 1 day Head circumference: 23 cm 25 weeks 3 days Abdominal circumference: 21 cm 25 weeks 6 days Femur length 5 cm 27 weeks 1 day There is an anterior placenta IMPRESSION: 1. Single live intrauterine at 27 weeks 2 days gestational age by LMP measures 25 weeks 6 days. There has been slightly less than expected growth since the August 26, 2019 examination. 2. No anatomic abnormality identified. Electronically signed by: Thierno Aldana III, MD (01/05/2020 9:46 AM) [id number]
== END | disposition home or self-care (01) ==
LOC: US 08:29
PROVIDERS: ATTEND Obstetrics & Gynecology
DX: O26.842 Uterine size-date discrepancy, second trimester (principal); Z3A.27 27 weeks gestation of pregnancy
CPT/HCPCS: 76805

== ENCOUNTER 2020-02-11 09:51 | Observation (INO) | payer OTHER ==
[2020-02-11] MEDS ORDERED: ALPRAZolam 1 MG TABLET PO ONE (10:15)
[2020-02-11] MEDS ORDERED: ACETAMINOPHEN 500 MG TABLET PO ONE (11:00)
== END 2020-02-11 11:05 | disposition home or self-care (01) ==
LOC: 3 SO LND 09:51
PROVIDERS: ADMIT Obstetrics & Gynecology; ATTEND Obstetrics & Gynecology
DX: O36.8130 Decreased fetal movements, third trimester, not applicable or unspecified (principal); Z3A.31 31 weeks gestation of pregnancy
CPT/HCPCS: G0378; G0379; 59025

== ENCOUNTER 2020-04-17 18:20 | Inpatient (IN) | payer OTHER, MEDICAID ==
[~2020-04-17] VITALS: Ht 154.9 cm; Wt 63.9 kg
[2020-04-17] MEDS ORDERED: IV NORMAL SALINE 1000ML BAG 1,000 ML IV SCH (18:31)
--- NOTE | 2020-04-17 18:34 | PHYS DOC ---
Past Medical History Past Medical History: Anxiety, Endometriosis, Seizure Additional Past Medical Histor: OVARIAN CYSTS Past Surgical History: , Other Additional Past Surgical Histo: CYST REMOVAL, ENDOMETRIOSIS Smoking Status: Never Smoker Alcohol Use: None Drug Use: None General Adult HPI: HPI: Patient is a 24 year old female who arrives via EMS following a respiratory arrest. Patient was found in car outside a store apneic and cyanotic. Patient has history of drug use and started breathing after 1 mg of intranasal Narcan was administered. Patient arrives with sonorous respirations and assisted respirations. History and physical and review of systems are limited due to altered mental status Review of Systems: Review of Systems: Unobtainable due to altered mental status Heart Score: Risk Factors: Risk Factors: DM, Current or recent (<one month) smoker, HTN, HLP, family history of CAD, obesity. Risk Scores: Score 0 - 3: 2.5% MACE over next 6 weeks - Discharge Home Score 4 - 6: 20.3% MACE over next 6 weeks - Admit for Clinical Observation Score 7 - 10: 72.7% MACE over next 6 weeks - Early Invasive Strategies Allergies: Allergies: Allergies Coded Allergies Type Severity Reaction Last Updated Verified No Known Drug Allergies 05/09/16 No Physical Exam: PE: Constitutional: Drowsy sonorous respirations HENT: Normocephalic, atraumatic, bilateral external ears normal, no trismus nose normal. [] Eyes: Pupils 2 mm sluggish conjunctiva normal, no discharge. [] Neck: Normal range of motion, no tenderness, supple, no stridor. [] Cardiovascular: Tachycardia peripheral pulses intact Lungs & Thorax: Bilateral breath sounds clear, sonorous respirations Abdomen: , soft, no tenderness, no masses, no pulsatile masses. [] Skin: Diaphoresis, no erythema or rash Back: No tenderness, no CVA tenderness. [] Extremities: No tenderness, no cyanosis, no clubbing, ROM intact, no edema. [] Neurologic: Alert and oriented X 0 does not follow commands Psychologic: Unable to assess Current Patient Data: Labs: Laboratory Tests Test 04/17/20 18:25 04/17/20 18:30 White Blood Count 12.3 x10^3/uL Red Blood Count 4.25 x10^6/uL Hemoglobin 12.3 g/dL Hematocrit 37.7 % Mean Corpuscular Volume 89 fL Mean Corpuscular Hemoglobin 29 pg Mean Corpuscular Hemoglobin Concent 33 g/dL Red Cell Distribution Width 18.0 % Platelet Count 350 x10^3/uL Neutrophils (%) (Auto) 44 % Lymphocytes (%) (Auto) 44 % Monocytes (%) (Auto) 10 % Eosinophils (%) (Auto) 3 % Basophils (%) (Auto) 0 % Neutrophils # (Auto) 5.4 x10^3/uL Lymphocytes # (Auto) 5.4 x10^3/uL Monocytes # (Auto) 1.2 x10^3/uL Eosinophils # (Auto) 0.3 x10^3/uL Basophils # (Auto) 0.0 x10^3/uL Maternal Serum HCG Beta Subunit < 1 mIU/mL Sodium Level 141 mmol/L Potassium Level 2.9 mmol/L Chloride Level 104 mmol/L Carbon Dioxide Level 25 mmol/L Anion Gap 12 Blood Urea Nitrogen 14 mg/dL Creatinine 1.1 mg/dL Estimated GFR (Cockcroft-Gault) 61.6 BUN/Creatinine Ratio 13 Glucose Level 234 mg/dL Calcium Level 8.4 mg/dL Total Bilirubin 0.4 mg/dL Aspartate Amino Transf (AST/SGOT) 25 U/L Alanine Aminotransferase (ALT/SGPT) 24 U/L Alkaline Phosphatase 89 U/L Total Protein 7.1 g/dL Albumin 3.4 g/dL Albumin/Globulin Ratio 0.9 Salicylates Level 3.2 mg/dL Salicylate Last Dose Date Unk Salicylate Last Dose Time Unk Acetaminophen Level < 2 mcg/ml Acetaminophen Last Dose Date Unk Acetaminophen Last Dose Time Unk Ethyl Alcohol Level < 10 mg/dL Urine Opiates Screen Neg Urine Methadone Screen Neg Urine Barbiturates Neg Urine Phencyclidine Screen Neg Urine Amphetamine/Methamphetamine Pos Urine Benzodiazepines Screen Pos Urine Cocaine Screen Neg Urine Cannabinoids Screen Neg Urine Ethyl Alcohol Neg Current Medications Medications (Trade) Dose Ordered Sig/Maggie Route PRN Reason Start Time Stop Time Status Last Admin Dose Admin Sodium Chloride 1,000 ml @ 100 mls/hr Q10H IV 04/17/20 18:31 04/18/20 04:30 04/17/20 18:31 Naloxone HCl (Narcan) 2 mg STK-MED ONCE .ROUTE 04/17/20 18:38 04/17/20 18:38 DC Naloxone HCl (Narcan) 2 mg 1X ONCE IV 8/10/20 19:00 04/17/20 19:01 DC 04/17/20 18:25 Vital Signs: Vital Signs Date Time Temp Pulse Resp B/P (MAP) Pulse Ox O2 Delivery O2 Flow Rate FiO2 04/17/20 22:00 72 16 100 04/17/20 21:00 78 16 100 04/17/20 20:00 82 16 100 04/17/20 19:30 88 16 100 04/17/20 19:00 100 16 100 04/17/20 18:20 98.0 104 10 98/68 (78) 100 Bag Valve Mask 98.0 EKG: EKG: [] EKG interpreted by me sinus tach with a rate of 104 incomplete right bundle branch block prolonged QTC normal ST segments Radiology/Procedures: Radiology/Procedures: [][address] [address] IMAGING REPORT Signed PATIENT: BANDAR SANDHU ACCOUNT: [id number] : 1995 LOCATION: ER AGE: 24 SEX: F EXAM STATUS: PRE ER ORD. PHYSICIAN: LAUREN GAYTAN MD REASON: ams PROCEDURE: PORTABLE CHEST 1V INDICATION: Reason: ams / Spl. Instructions: / History: COMPARISON: December 2016 FINDINGS: Single view of chest obtained. Mild elevation of the left hemidiaphragm. Air-filled distention of the stomach at the left upper quadrant. No definite new region of consolidation. IMPRESSION: * No focal airspace consolidation. * Air-filled distention of the stomach with mild elevation left hemidiaphragm. Electronically signed by: Fabio Bolanos MD (04/17/2020 7:26 PM) [id number] DICTATED and SIGNED BY: FABIO BOLANOS MD DATE: 04/17/201925 [address] [address] IMAGING REPORT Signed PATIENT: BANDAR SANDHU ACCOUNT: [id number] : 1995 LOCATION: ER AGE: 24 SEX: F EXAM STATUS: REG ER ORD. PHYSICIAN: LAUREN GAYTAN MD REASON: ams PROCEDURE: CT HEAD WO CONTRAST INDICATION: Reason: ams / Spl. Instructions: / History: COMPARISON: December 2017 TECHNIQUE: Axial CT images obtained through the head without intravenous contrast. One or more of the following individualized dose reduction techniques were utilized for this examination: 1. Automated exposure control; 2. Adjustment of the mA and/or kV according to patient size; 3. Use of iterative reconstruction technique. FINDINGS: No intracranial hemorrhage. No midline shift. Basal cisterns patent. Ventricles and sulci are unremarkable. No acute osseous abnormality. Orbits and paranasal sinuses unremarkable. IMPRESSION: * No acute intracranial hemorrhage. Electronically signed by: Fabio Bolanos MD (04/17/2020 8:03 PM) [id number] DICTATED and SIGNED BY: FABIO BOLANOS MD DATE: 04/17/202002 Course & Med Decision Making: Course & Med Decision Making Pertinent Labs and Imaging studies reviewed. (See chart for details) [] 24-year-old female presents following respiratory arrest. Patient was cyanotic and apneic upon EMS arrival. 1 mg Narcan was administered. Patient was still sonorous when she got to us. She was given 2 mg Narcan IV and had improved respiratory status but still remains altered. Patient is her multiple times in the ER and slowly waking up. Patient still needs admission to ICU for further evaluation and close observation. Critical condition: Overdose, respiratory arrest Critical interventions: Narcan, oxygen, close monitoring, ICU admission Critical care time was [35] minutes exclusive of procedures. Critical care time was [35] minutes which includes time at bedside, spent in discussion of patient's care with specialist and/or family members, with interpretation of laboratory and/or radiological studies and is exclusive of procedures. Dragon Disclaimer: Dragon Disclaimer: This electronic medical record was generated, in whole or in part, using a voice recognition dictation system. Departure Departure Impression: Primary Impression: Overdose Additional Impression: Respiratory failure Disposition: 01 HOME, SELF-CARE Admitting Physician: FRAUSTO (castle) Condition: GUARDED Referrals: NO PCP (PCP) Justicifation of Admission Dx: Justifications for Admission: Justification of Admission Dx: Yes LAUREN GAYTAN MD Apr 17, 2020 18:34
[2020-04-17] MEDS ORDERED: NALOXONE 2 MG/2 ML DISP.SYRIN. ONE (18:38)
[2020-04-17 18:44] LABS: BASO % 0 % (0-3); EOS # 0.3 x10^3/uL (0.0-0.7); EOS % 3 % (0-3); HEMATOCRIT 37.7 % (36.0-47.0); HEMOGLOBIN 12.3 g/dL (12.0-15.5); LYMPH # 5.4 x10^3/uL (1.0-4.8); LYMPH % 44 % (24-48); MEAN CORPUSCULAR HEMOGLOBIN 29 pg (25-35); MEAN CORPUSCULAR HGB CONC 33 g/dL (31-37); MEAN CORPUSCULAR VOLUME 89 fL (79-100); MONO # 1.2 x10^3/uL (0.0-1.1); MONO % 10 % (0-9); NEUT # 5.4 x10^3/uL (1.8-7.7); NEUT % 44 % (31-73); PLATELET COUNT 350 x10^3/uL (140-400); RED BLOOD COUNT 4.25 x10^6/uL (3.50-5.40); WHITE BLOOD COUNT 12.3 x10^3/uL (4.0-11.0)
[2020-04-17 18:54] LABS: BARBITURATES NEG (NEG); BENZODIAZEPINES POS (NEG); CANNABINOIDS NEG (NEG); COCAINE NEG (NEG); METHADONE NEG (NEG); OPIATES NEG (NEG); PHENCYCLIDINE NEG (NEG)
[2020-04-17 18:57] LABS: AMPHETAMINE/METHAMPHETAMINE POS (NEG)
[2020-04-17] MEDS ORDERED: NALOXONE 2 MG/2 ML DISP.SYRIN. IV ONE (19:00)
[2020-04-17 19:02] LABS: ACETAMIN < 2 mcg/ml (10-30); ETHANOL < 10 mg/dL (0-10); SALIC 3.2 mg/dL (2.8-20.0)
[2020-04-17 19:03] LABS: ALBUMIN 3.4 g/dL (3.4-5.0); ALBUMIN/GLOBULIN RATIO 0.9 (1.0-1.7); CALCIUM 8.4 mg/dL (8.5-10.1); CREATININE 1.1 mg/dL (0.6-1.0); GFR 61.6; TOTAL BILIRUBIN 0.4 mg/dL (0.2-1.0); TOTAL PROTEIN 7.1 g/dL (6.4-8.2)
[2020-04-17 19:05] LABS: POTASSIUM 2.9 mmol/L (3.5-5.1)
--- NOTE | 2020-04-17 19:28 | RAD ---
INDICATION: Reason: ams / Spl. Instructions: / History: COMPARISON: December 2016 FINDINGS: Single view of chest obtained. Mild elevation of the left hemidiaphragm. Air-filled distention of the stomach at the left upper quadrant. No definite new region of consolidation. IMPRESSION: * No focal airspace consolidation. * Air-filled distention of the stomach with mild elevation left hemidiaphragm. Electronically signed by: Gilberto Benoit MD (04/17/2020 7:26 PM) [id number]
[2020-04-17] MEDS: IV NORMAL SALINE 1000ML BAG 1,000 ML IV SCH (20:05)
--- NOTE | 2020-04-17 20:06 | RAD ---
INDICATION: Reason: ams / Spl. Instructions: / History: COMPARISON: December 2017 TECHNIQUE: Axial CT images obtained through the head without intravenous contrast. One or more of the following individualized dose reduction techniques were utilized for this examination: 1. Automated exposure control; 2. Adjustment of the mA and/or kV according to patient size; 3. Use of iterative reconstruction technique. FINDINGS: No intracranial hemorrhage. No midline shift. Basal cisterns patent. Ventricles and sulci are unremarkable. No acute osseous abnormality. Orbits and paranasal sinuses unremarkable. IMPRESSION: * No acute intracranial hemorrhage. Electronically signed by: Gilberto Benoit MD (04/17/2020 8:03 PM) [id number]
[2020-04-17] MEDS ORDERED: ONDANSETRON PF 4 MG/2 ML VIAL. IV PRN (20:15)
[2020-04-17] MEDS ORDERED: POTASSIUM CHLORIDE 20MEQ 100 ML IV ONE (22:00)
[2020-04-17 22:15] VITALS: BP 109/71
[2020-04-17 22:30] VITALS: BP 109/64
--- NOTE | 2020-04-17 22:30 | NUR ---
Patient admitted to room 105 at 2200 via cart from ED, accompanied by ED RN. Patient drowsy, alert to self and states she recalled being in her car this evening but does no know what happened after. Updated patient on reason for admission and results of drug screen + for Barbiturates and Meth. Patient states she takes Xanax for seizure disorder but does not use Meth and states she did take her Xanax this am; patient very concerned with how she was + for Meth and becomes very tearful. Patient has healed low abdominal incision from recent ~3 weeks ago. Patient oriented to ICU routine, room, nursing call light, TV/Bed control, Numeric pain scale, diet, activity and POC. Patient verbalized understanding of all. Patient requests branham catheter--#18 Afghan branham inserted using sterile technique after explanation to patient--returned of scant clear yellow urine. Patient states she is concerned she may have had a seizure because her muscles ache "all over like they do after a seizure." Explained to patient there is no way of telling if she had a seizure. Patient states her pain is a 9/10 on Numeric pain scale but no pain meds ordered--will page PCP for pain meds. See Admission information interventions and Admission assessment.
[2020-04-17 22:45] VITALS: BP 99/66
--- NOTE | 2020-04-17 22:55 | NUR ---
Patient has not taken her nighttime dose of Kepra and Xanax for seizures and is concerned she may have had a seizures; Dr Ibrahim paged. Dr Ibrahim returned page, notified of above and home dosage of Kepra and Xanax, and patient also complaning of generalized pain but no pain medications ordered. Orders received for Kepar 500MG po BID, Xanaz 1MG PO BID, and Lortab 5.325NG PO PRN Q6HRS. Patient notified of mediations, see deandre.
[2020-04-17 23:00] VITALS: BP 100/68
[2020-04-17] MEDS ORDERED: LEVE500T6 PO (23:05)
[2020-04-17] MEDS ORDERED: ALPR1TAB6 PO (23:05)
[2020-04-17] MEDS: HYDROcodone/APAP 5/325MG 1 TAB TABLET PO PRN (23:23)
[2020-04-17] MEDS: ALPRAZolam 1 MG TABLET PO SCH (23:23)
[2020-04-17] MEDS: levETIRAcetam 500 MG TABLET PO SCH (23:23)
[2020-04-17 23:30] VITALS: BP 98/63
[2020-04-17 23:59] VITALS: BP 86/59
[2020-04-18] VITALS (10 sets, daily range): BP systolic 84–121; BP diastolic 48–61
--- NOTE | 2020-04-18 04:43 | EKG ---
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
[2020-04-18 05:24] LABS: HEMATOCRIT 34.6 % (36.0-47.0); HEMOGLOBIN 11.4 g/dL (12.0-15.5); RED BLOOD COUNT 3.87 x10^6/uL (3.50-5.40); RED CELL DISTRIBUTION WIDTH 17.9 % (11.5-14.5); WHITE BLOOD COUNT 7.3 x10^3/uL (4.0-11.0)
[2020-04-18 05:38] LABS: CREATININE 0.7 mg/dL (0.6-1.0); GFR 103.7
[2020-04-18] MEDS: HYDROcodone/APAP 5/325MG 1 TAB TABLET PO PRN (06:38)
[2020-04-18] MEDS: IV NORMAL SALINE 1000ML BAG 1,000 ML IV SCH (06:41)
[2020-04-18] MEDS: levETIRAcetam 500 MG TABLET PO SCH (09:48)
[2020-04-18] MEDS: ALPRAZolam 1 MG TABLET PO SCH (09:48)
--- NOTE | 2020-04-18 10:34 | NUR ---
Pt still rating pain at 9/10, despite last dose of Lortab 5/325 given approx 3 hours ago. This RN received telephone orders per Dr. Limon to give a one time dose of Lortab 5/325, then he would be seeing the pt.
[2020-04-18] MEDS ORDERED: HYDROcodone/APAP 5/325MG 1 TAB TABLET PO ONE (11:30)
--- NOTE | 2020-04-18 11:48 | NUR ---
SS following for discharge planning. SS reviewed pt chart and discussed with pt RN. Pt is from home and is currently on room air. Pt positive for Methamphetamine and Benzos. PAT team referral made. Pt cleared by PAT team. Pt provided with resources for addiction and RSI. Discharge to home today. SS will continue to follow for discharge planning.
--- NOTE | 2020-04-18 12:16 | SSS ---
ADMIT DATE: 04/18/2020 CHIEF COMPLAINT: Accidental overdose. HISTORY OF PRESENT ILLNESS: The patient is a pleasant 24-year-old female who was found to have respiratory arrest. She was found outside of a store, not breathing well. She was cyanotic. EMS arrived and gave her some Narcan and that did seem to improve her, she was admitted overnight for observation. This morning, we had the psychiatric assessment team see her. They feel like she is safe to go home. We are going to discharge. PAST MEDICAL HISTORY: The patient tells me she has a history of seizures and takes Keppra for that. She also uses p.r.n. Ativan and p.r.n. Percocet for the muscle pain after her seizures. Endometriosis, anxiety and . ALLERGIES: None. FAMILY HISTORY: Diabetes. SOCIAL HISTORY: She does not drink, smoke or take drugs. MEDICATIONS: Reviewed, please refer to the MRAD. REVIEW OF SYSTEMS: GENERAL: No history of weight change, weakness or fevers. SKIN: No bruising, hair changes or rashes. EYES: No blurred, double or loss of vision. NOSE AND THROAT: No history of nosebleeds, hoarseness or sore throat. HEART: No history of palpitations, chest pain or shortness of breath on exertion. LUNGS: Denies cough, hemoptysis, wheezing or shortness of breath. GASTROINTESTINAL: Denies changes in appetite, nausea, vomiting, diarrhea or constipation. GENITOURINARY: No history of frequency, urgency, hesitancy or nocturia. NEUROLOGIC: Denies history of numbness, tingling, tremor or weakness. PSYCHIATRIC: No history of panic, anxiety or depression. ENDOCRINE: No history of heat or cold intolerance, polyuria or polydipsia. EXTREMITIES: Denies muscle weakness, joint pain, pain on walking or stiffness. PHYSICAL EXAMINATION: VITALS: Within normal limits and are stable. GENERAL: No apparent distress. Alert and oriented. HEENT: Normal cephalic atraumatic, external auditory canals are patent EYES: Extraocular muscles are intact, pupils are equally round and reactive to light and accommodation MUSCULOSKELETAL: Well developed, well nourished, good range of motion ENDOCRINE: No thyromegaly was palpated LYMPHATICS: No cervical chain or axillary nodes were noted HEMATOPOIETIC: No bruising NECK: Supple, no JVD, no thyromegaly was noted. LUNGS: Clear to auscultation in all lung thomas without rhonchi or wheezing. HEART: RRR, S1, S2 present. Peripheral pulses intact, no obvious murmurs were noted. ABDOMEN: Soft, nontender. Positive bowel sounds no organomegaly, normal bowel sounds. EXTREMITIES: Without any cyanosis, clubbing, or edema. Pedal pulses intact, Homans sign is negative. NEUROLOGIC: Normal speech, normal tone. A & O x3, moves all extremities, no obvious focal deficits. PSYCHIATRIC: Normal affect, normal mood. Stable. SKIN: No ulcerations or rashes, good skin turgor, no jaundice. VASCULAR: Good capillary refill, neurovascular bundle appears to be intact. ASSESSMENT AND PLAN: Resolving accidental overdose. PLAN: Discharge. DISPOSITION: Home. ACTIVITY: As tolerated. DIET: Low sodium. MEDICATIONS: I gave her 2 prescriptions for 10 tablets of Percocet 5 mg 1 every 6 hours p.r.n. and she also wanted a refill on her Xanax. I gave her a prescription for 10 tablets of Xanax 1 mg to take 1 p.o. q.8 hours p.r.n. She promised me she would not take more than what I prescribed on the Xanax and the Percocet. TOTAL TIME: 32 minutes. SALONI DINERO DO DR: ILA/becky JOB#: [id number] / [id number]
--- NOTE | 2020-04-18 12:46 | NUR ---
Pt left unit by ambulation via private vehicle, accompanied by boyfriend. Pt's IV's removed with no complications, VSS. Discharge paperwork discussed and sent with pt at time of discharge.
== END 2020-04-18 12:49 | disposition home or self-care (01) | DRG 917 ==
LOC: ER 18:20 → 1 WEST ICU 20:00
PROVIDERS: ADMIT Internal Medicine; ATTEND Internal Medicine
DX: T50.901A Poisoning by unspecified drugs, medicaments and biological substances, accidental (unintentional), initial encounter (principal); R09.2 Respiratory arrest; R23.0 Cyanosis; F41.9 Anxiety disorder, unspecified; Y92.89 Other specified places as the place of occurrence of the external cause; Z98.891 History of uterine scar from previous surgery; Z83.3 Family history of diabetes mellitus
CPT/HCPCS: 36415; 70450; 71045; 80048; 80053; 80307; 80329; 84702; 85025; 85027; 93005; 96361; 96374; 99291; G0480; J2310; J3480; J7030; G0378

== ENCOUNTER 2020-05-29 15:14 | Emergency (ER) | payer OTHER, MEDICAID ==
[~2020-05-29] VITALS: Ht 154.9 cm; Wt 68.1 kg
[~2020-05-29 15:14] MED LIST changes: +ALPR1TAB6 PO; +LEVE500T6 PO
[2020-05-29 15:55] VITALS: BP 109/69
[2020-05-29] MEDS ORDERED: levETIRAcetam 500 MG TABLET PO STA (16:16)
[2020-05-29] MEDS ORDERED: ALPRAZolam 0.5 MG TABLET PO STA (16:22)
[2020-05-29] MEDS ORDERED: LEVE500T56 PO (16:35)
[2020-05-29] MEDS ORDERED: ALPR1TAB6 PO (16:35)
--- NOTE | 2020-05-29 16:35 | PHYS DOC ---
Past Medical History Past Medical History: Anxiety, Endometriosis, Seizure Additional Past Medical Histor: OVARIAN CYSTS Past Surgical History: , Other Additional Past Surgical Histo: CYST REMOVAL, ENDOMETRIOSIS Smoking Status: Never Smoker Alcohol Use: None Drug Use: None General Adult EDM: Chief Complaint: MEDICATION REFILL HPI: HPI: Patient is a 24 year old female with history of seizures and anxiety who presents to the ED today requesting a refill of her seizure and anxiety medications which she ran out yesterday. Patient denies any seizures today. Has a follow-up appointment with her neurologist next month. Review of Systems: Review of Systems: Constitutional: Denies fever or chills. [] Eyes: Denies change in visual acuity. [] HENT: Denies nasal congestion or sore throat. [] Respiratory: Denies cough or shortness of breath. [] Cardiovascular: Denies chest pain or edema. [] GI: Denies abdominal pain, nausea, vomiting, bloody stools or diarrhea. [] : Denies dysuria. [] Musculoskeletal: Denies back pain or joint pain. [] Integument: Denies rash. [] Neurologic: Reports history of seizures. Denies headache, focal weakness or sen j luis changes. [] Psychiatric: Reports history of anxiety Heart Score: Risk Factors: Risk Factors: DM, Current or recent (<one month) smoker, HTN, HLP, family history of CAD, obesity. Risk Scores: Score 0 - 3: 2.5% MACE over next 6 weeks - Discharge Home Score 4 - 6: 20.3% MACE over next 6 weeks - Admit for Clinical Observation Score 7 - 10: 72.7% MACE over next 6 weeks - Early Invasive Strategies Current Medications: Current Medications Medications (Trade) Dose Ordered Sig/Maggie Start Time Stop Time Status Last Admin Dose Admin Alprazolam (Xanax) 1 mg 1X STAT 05/29/20 16:22 05/29/20 16:23 DC 05/29/20 16:28 1 MG Levetiracetam (Keppra) 500 mg 1X STAT 05/29/20 16:16 05/29/20 16:22 DC 05/29/20 16:28 500 MG Allergies: Allergies: Allergies Coded Allergies Type Severity Reaction Last Updated Verified No Known Drug Allergies 05/09/16 No Physical Exam: PE: Constitutional: Well developed, well nourished, no acute distress, non-toxic appearance. [] HENT: Normocephalic, atraumatic, bilateral external ears normal, oropharynx moist, no oral exudates, nose normal. [] Eyes: PERRLA, EOMI, conjunctiva normal, no discharge. [] Neck: Normal range of motion, no tenderness, supple, no stridor. [] Cardiovascular:Heart rate regular rhythm, no murmur [] Lungs & Thorax: Bilateral breath sounds clear to auscultation [] Abdomen: Bowel sounds normal, soft, no tenderness, no masses, no pulsatile m asses. [] Skin: Warm, dry, no erythema, no rash. [] Back: No tenderness, no CVA tenderness. [] Extremities: No tenderness, no cyanosis, no clubbing, ROM intact, no edema. [] Neurologic: Alert and oriented X 3, normal motor function, normal sensory function, no focal deficits noted. Cranial nerves II through XII intact Psychologic: Affect normal, judgement normal, mood normal. [] Current Patient Data: Vital Signs: Vital Signs Date Time Temp Pulse Resp B/P (MAP) Pulse Ox O2 Delivery O2 Flow Rate FiO2 05/29/20 15:55 98.3 82 16 109/69 (82) 99 Room Air 98.3 EKG: EKG: [] Radiology/Procedures: Radiology/Procedures: [] Course & Med Decision Making: Course & Med Decision Making Pertinent Labs and Imaging studies reviewed. (See chart for details) This is a 24-year-old female patient presenting to the ED today requesting a refill of Keppra and alprazolam which he takes for seizures. She has been out of the medication since yesterday. Refills were given. She has an appointment with next month. Ledy Disclaimer: Ledy Disclaimer: This electronic medical record was generated, in whole or in part, using a voice recognition dictation system. Departure Departure Impression: Primary Impression: Medication refill Additional Impressions: Seizure Anxiety Disposition: HOME, SELF-CARE Condition: STABLE Referrals: NO PCP (PCP) EDWARD NORIEGA MD follow up next week Patient Instructions: Seizure, Adult Additional Instructions: Please take your prescribed medications as ordered additionally follow-up with the neurologist. Scripts Alprazolam (ALPRAZOLAM) 1 Mg Tablet 1 TAB PO BID, #60 TAB Prov: JUSTICE SIMS APRN 05/29/20 Levetiracetam (KEPPRA) 500 Mg Tablet 1 TAB PO BID for 30 Days, #90 TAB 0 Refills Prov: JUSTICE SIMS APRN 05/29/20 Justicifation of Admission Dx: Justifications for Admission: Justification of Admission Dx: Yes JUSTICE SIMS APRN May 29, 2020 16:35
== END 2020-05-29 16:39 | disposition home or self-care (01) ==
LOC: ER 15:14
DX: R56.9 Unspecified convulsions (principal); F41.9 Anxiety disorder, unspecified; Z76.0 Encounter for issue of repeat prescription
CPT/HCPCS: 99283

== ENCOUNTER 2020-07-26 18:19 | Emergency (ER) | payer MEDICAID, OTHER ==
[~2020-07-26] VITALS: Ht 154.9 cm; Wt 66.0 kg
[~2020-07-26 18:19] MED LIST changes: +LEVE500T56 PO
--- NOTE | 2020-07-26 18:28 | PHYS DOC ---
Past Medical History Past Medical History: Anxiety, Endometriosis, Seizure Additional Past Medical Histor: OVARIAN CYSTS Past Surgical History: , Other Additional Past Surgical Histo: CYST REMOVAL, ENDOMETRIOSIS Smoking Status: Never Smoker Alcohol Use: None Drug Use: None General Adult HPI: HPI: Patient is a 25 year old female with a past medical history of seizures and anxiety presents via ems for evaluation of drug overdose. Patient unresponsive on EMS arrival. Patient was treated intranasal narcan 2mg x 2 doses. On arrival patient drowsy. Responds to verbal stimuli- states she took her normal seizure (keppra) and Xanax prior to arrival. She follows commands and moves all extremities. Patient denies HI or SI. Patient admits to taking Xanax 2mg around 1300hrs. Denies any other drug use-- specifically opiates. Patient states she donated plasma this AM. Review of Systems: Review of Systems: Constitutional: Denies fever or chills. [] Eyes: Denies change in visual acuity. [] HENT: Denies nasal congestion or sore throat. [] Respiratory: Denies cough or shortness of breath. [] Cardiovascular: Denies chest pain or edema. [] GI: Denies abdominal pain, nausea, vomiting, bloody stools or diarrhea. [] : Denies dysuria. [] Musculoskeletal: Denies back pain or joint pain. [] Integument: Denies rash. [] Neurologic: Denies headache, focal weakness or sensory changes. [] Endocrine: Denies polyuria or polydipsia. [] Lymphatic: Denies swollen glands. [] Psychiatric: Denies depression or anxiety. [] Heart Score: Risk Factors: Risk Factors: DM, Current or recent (<one month) smoker, HTN, HLP, family history of CAD, obesity. Risk Scores: Score 0 - 3: 2.5% MACE over next 6 weeks - Discharge Home Score 4 - 6: 20.3% MACE over next 6 weeks - Admit for Clinical Observation Score 7 - 10: 72.7% MACE over next 6 weeks - Early Invasive Strategies Allergies: Allergies: Allergies Coded Allergies Type Severity Reaction Last Updated Verified No Known Drug Allergies 05/09/16 No Physical Exam: PE: Constitutional: Well developed, well nourished, no acute distress, non-toxic ap pearance. [] HENT: Normocephalic, atraumatic, bilateral external ears normal, oropharynx moist, no oral exudates, nose normal. [] Eyes: PERRLA, EOMI, conjunctiva normal, no discharge. [] Neck: Normal range of motion, no tenderness, supple, no stridor. [] Cardiovascular:Heart rate regular rhythm, no murmur [] Lungs & Thorax: Bilateral breath sounds clear to auscultation [] Abdomen: Bowel sounds normal, soft, no tenderness, no masses, no pulsatile masses. [] Skin: Warm, dry, no erythema, no rash. [] Back: No tenderness, no CVA tenderness. [] Extremities: No tenderness, no cyanosis, no clubbing, ROM intact, no edema. [] Neurologic: Alert and oriented X 3, normal motor function, normal sensory function, no focal deficits noted. [] Psychologic: Affect normal, judgement normal, mood normal. [] EKG: EKhrs rate 120 sinus tachycardia no stemi[] Radiology/Procedures: Radiology/Procedures: [] Course & Med Decision Making: Course & Med Decision Making Pertinent Labs and Imaging studies reviewed. (See chart for details) []Re-evaluation @ 1900hrs. Patient a/ox4 Patient with no complaints. Treatment with NS. Ledy Disclaimer: Ledy Disclaimer: This electronic medical record was generated, in whole or in part, using a voice recognition dictation system. Departure Departure Impression: Primary Impression: Drug overdose Disposition: 01 DC HOME SELF CARE/HOMELESS Condition: STABLE Referrals: NO PCP (PCP) Patient Instructions: Overdose, Accidental ARIANA CHAVIRA DO Jul 26, 2020 18:28
[2020-07-26] MEDS ORDERED: IV NORMAL SALINE 1000ML BAG 1,000 ML IV ONE (18:30)
[2020-07-26 18:43] LABS: BASO # 0.1 x10^3/uL (0.0-0.2); BASO % 1 % (0-3); EOS # 0.2 x10^3/uL (0.0-0.7); EOS % 2 % (0-3); HEMATOCRIT 36.2 % (36.0-47.0); HEMOGLOBIN 11.7 g/dL (12.0-15.5); LYMPH # 3.4 x10^3/uL (1.0-4.8); LYMPH % 38 % (24-48); MEAN CORPUSCULAR HEMOGLOBIN 29 pg (25-35); MEAN CORPUSCULAR HGB CONC 32 g/dL (31-37); MEAN CORPUSCULAR VOLUME 89 fL (79-100); MONO # 0.8 x10^3/uL (0.0-1.1); MONO % 9 % (0-9); NEUT # 4.6 x10^3/uL (1.8-7.7); NEUT % 51 % (31-73); PLATELET COUNT 276 x10^3/uL (140-400); RED BLOOD COUNT 4.09 x10^6/uL (3.50-5.40); RED CELL DISTRIBUTION WIDTH 14.3 % (11.5-14.5)
[2020-07-26 18:52] LABS: BARBITURATES NEG (NEG); BENZODIAZEPINES POS (NEG); CALCIUM 8.1 mg/dL (8.5-10.1); CANNABINOIDS POS (NEG); COCAINE NEG (NEG); GFR 68.1; METHADONE NEG (NEG); OPIATES NEG (NEG); PHENCYCLIDINE NEG (NEG); POTASSIUM 3.7 mmol/L (3.5-5.1)
[2020-07-26 18:53] LABS: AMPHETAMINE/METHAMPHETAMINE NEG (NEG)
[2020-07-26 20:33] VITALS: BP 104/71
== END 2020-07-26 20:42 | disposition home or self-care (01) ==
LOC: ER 18:19
DX: T50.7X1A Poisoning by analeptics and opioid receptor antagonists, accidental (unintentional), initial encounter (principal); F41.9 Anxiety disorder, unspecified; Z98.890 Other specified postprocedural states; Y92.89 Other specified places as the place of occurrence of the external cause
CPT/HCPCS: 36415; 80048; 80307; 81025; 85025; 93005; 96360; 96361; 99285; G0480; J7030

== ENCOUNTER → 2020-07-31 | Outpatient (CLI) | payer MEDICAID, OTHER ==
[2020-07-26 20:33] VITALS: BP 104/71
--- NOTE | 2020-07-31 15:04 | EEG ---
DATE OF SERVICE: 07/31/2020 EEG NUMBER: [id number] OBJECTIVE: The patient is a 25-year-old female with history of epilepsy. DESCRIPTION: This is a digital study. Electrodes are placed according to the international 10-20 system. Bipolar and referential montages are available. Activation procedures typically include hyperventilation and intermittent photic stimulation. INTERPRETATION: The waking background consists of 9-10 Hz, 50-100 microvolt activity, symmetrically distributed over parietooccipital regions and reactive to eye opening. Hyperventilation and intermittent photic stimulation are noncontributory. Stage 2 sleep is achieved with normal electroencephalogram patterns. There are occasional sharp waves with phase reversal at electrode T5. IMPRESSION: This electroencephalogram with the patient awake and asleep is abnormal because of an epileptic disturbance of cerebral activity in the left temporal lobe. The findings are consistent with epilepsy arising from this region. Thank you for letting us help with the patient's care. EDWARD NORIEGA MD DR: KASH/becky JOB#: [id number] / [id number] ARTURO Mims MD
== END ==
LOC: RT 12:13
PROVIDERS: ATTEND Nurse Practitioner Family
DX: G40.909 Epilepsy, unspecified, not intractable, without status epilepticus (principal); R06.4 Hyperventilation
CPT/HCPCS: 95816

== ENCOUNTER 2020-08-12 14:59 | Emergency (ER) | payer MEDICAID ==
[~2020-08-12] VITALS: Ht 154.9 cm; Wt 65.0 kg
[2020-08-12] MEDS ORDERED: IV NORMAL SALINE 1000ML BAG 1,000 ML IV ONE (15:15)
[2020-08-12 15:51] LABS: BASO % 0 % (0-3); EOS # 0.1 x10^3/uL (0.0-0.7); EOS % 1 % (0-3); HEMATOCRIT 37.2 % (36.0-47.0); HEMOGLOBIN 12.5 g/dL (12.0-15.5); LYMPH # 1.3 x10^3/uL (1.0-4.8); LYMPH % 13 % (24-48); MEAN CORPUSCULAR HEMOGLOBIN 29 pg (25-35); MEAN CORPUSCULAR HGB CONC 34 g/dL (31-37); MEAN CORPUSCULAR VOLUME 88 fL (79-100); MONO # 0.8 x10^3/uL (0.0-1.1); MONO % 8 % (0-9); NEUT # 7.6 x10^3/uL (1.8-7.7); NEUT % 77 % (31-73); PLATELET COUNT 319 x10^3/uL (140-400); RED BLOOD COUNT 4.25 x10^6/uL (3.50-5.40); RED CELL DISTRIBUTION WIDTH 14.7 % (11.5-14.5); WHITE BLOOD COUNT 9.9 x10^3/uL (4.0-11.0)
[2020-08-12 16:14] LABS: CALCIUM 8.7 mg/dL (8.5-10.1); CREATININE 0.9 mg/dL (0.6-1.0); GFR 76.9; POTASSIUM 3.9 mmol/L (3.5-5.1)
[2020-08-12 16:17] LABS: ACETAMIN < 2 mcg/ml (10-30); SALIC < 2.8 mg/dL (2.8-20.0)
[2020-08-12 16:18] LABS: ETHANOL < 10 mg/dL (0-10)
[2020-08-12 16:28] LABS: ALBUMIN 3.4 g/dL (3.4-5.0); ALBUMIN/GLOBULIN RATIO 1.1 (1.0-1.7); MAGNESIUM 1.9 mg/dL (1.8-2.4); TOTAL BILIRUBIN 0.1 mg/dL (0.2-1.0); TOTAL PROTEIN 6.5 g/dL (6.4-8.2)
[2020-08-12 17:00] VITALS: BP 107/59
--- NOTE | 2020-08-12 17:09 | PHYS DOC ---
Past Medical History Past Medical History: Anxiety, Endometriosis, Seizure Additional Past Medical Histor: OVARIAN CYSTS Past Surgical History: , Tubal ligation, Other Additional Past Surgical Histo: CYST REMOVAL, ENDOMETRIOSIS Smoking Status: Current Every Day Smoker Alcohol Use: Occasionally Drug Use: None General Adult EDM: Chief Complaint: OVERDOSE HPI: HPI: Patient is a 25 year old female with hx of anxiety who presents to be evaluated for an overdose. Patient was found by EMS unresponsive with snoring respirations. They gave her Narcan intranasally and Narcan IV and performed CPR. She responded was awake and was brought to the ED. Patient reports she took only 1 tablet of oxycodone 30 mg which she states is her on prescription that she takes from her [employer] for abdominal pain after having a tubal ligation in February 2020. She is in the ED with the boyfriend who was also found unresponsive from overdose and he states he got his oxycodone from the street. Patient denies suicidal ideation Review of Systems: Review of Systems: Constitutional: Denies fever or chills. [] Eyes: Denies change in visual acuity. [] HENT: Denies nasal congestion or sore throat. [] Respiratory: Denies cough or shortness of breath. [] Cardiovascular: Denies chest pain or edema. [] GI: Denies abdominal pain, nausea, vomiting, bloody stools or diarrhea. [] : Denies dysuria. [] Musculoskeletal: Denies back pain or joint pain. [] Integument: Denies rash. [] Neurologic: Denies headache, focal weakness or sensory changes. [] Psychiatric: Reports overdose Heart Score: Risk Factors: Risk Factors: DM, Current or recent (<one month) smoker, HTN, HLP, family history of CAD, obesity. Risk Scores: Score 0 - 3: 2.5% MACE over next 6 weeks - Discharge Home Score 4 - 6: 20.3% MACE over next 6 weeks - Admit for Clinical Observation Score 7 - 10: 72.7% MACE over next 6 weeks - Early Invasive Strategies Current Medications: Current Medications Medications (Trade) Dose Ordered Sig/Maggie Start Time Stop Time Status Last Admin Dose Admin Sodium Chloride 1,000 ml @ 1,000 mls/hr 1X ONCE 08/12/20 15:15 08/12/20 16:14 DC 08/12/20 15:15 1,000 MLS/HR Allergies: Allergies: Allergies Coded Allergies Type Severity Reaction Last Updated Verified No Known Drug Allergies 05/09/16 No Physical Exam: PE: Constitutional: Well developed, well nourished, no acute distress, non-toxic appearance. [] HENT: Normocephalic, atraumatic, bilateral external ears normal, oropharynx moist, no oral exudates, nose normal. [] Eyes: PERRLA, EOMI, conjunctiva normal, no discharge. [] Neck: Normal range of motion, no tenderness, supple, no stridor. [] Cardiovascular:Heart rate regular rhythm, no murmur [] Lungs & Thorax: Bilateral breath sounds clear to auscultation [] Abdomen: Bowel sounds normal, soft, no tenderness, no masses, no pulsatile masses. [] Skin: Warm, dry, no erythema, no rash. [] Back: No tenderness, no CVA tenderness. [] Extremities: No tenderness, no cyanosis, no clubbing, ROM intact, no edema. [] Neurologic: Alert and oriented X 3, normal motor function, normal sensory function, no focal deficits noted. [] Psychologic: flat affect Current Patient Data: Labs: Laboratory Tests Test 08/12/20 15:30 White Blood Count 9.9 x10^3/uL (4.0-11.0) Red Blood Count 4.25 x10^6/uL (3.50-5.40) Hemoglobin 12.5 g/dL (12.0-15.5) Hematocrit 37.2 % (36.0-47.0) Mean Corpuscular Volume 88 fL (79-100) Mean Corpuscular Hemoglobin 29 pg (25-35) Mean Corpuscular Hemoglobin Concent 34 g/dL (31-37) Red Cell Distribution Width 14.7 % (11.5-14.5) H Platelet Count 319 x10^3/uL (140-400) Neutrophils (%) (Auto) 77 % (31-73) H Lymphocytes (%) (Auto) 13 % (24-48) L Monocytes (%) (Auto) 8 % (0-9) Eosinophils (%) (Auto) 1 % (0-3) Basophils (%) (Auto) 0 % (0-3) Neutrophils # (Auto) 7.6 x10^3/uL (1.8-7.7) Lymphocytes # (Auto) 1.3 x10^3/uL (1.0-4.8) Monocytes # (Auto) 0.8 x10^3/uL (0.0-1.1) Eosinophils # (Auto) 0.1 x10^3/uL (0.0-0.7) Basophils # (Auto) 0.0 x10^3/uL (0.0-0.2) Sodium Level 143 mmol/L (136-145) Potassium Level 3.9 mmol/L (3.5-5.1) Chloride Level 106 mmol/L (98-107) Carbon Dioxide Level 26 mmol/L (21-32) Anion Gap 11 (6-14) Blood Urea Nitrogen 13 mg/dL (7-20) Creatinine 0.9 mg/dL (0.6-1.0) Estimated GFR (Cockcroft-Gault) 76.9 BUN/Creatinine Ratio 14 (6-20) Glucose Level 112 mg/dL (70-99) H Calcium Level 8.7 mg/dL (8.5-10.1) Magnesium Level 1.9 mg/dL (1.8-2.4) Total Bilirubin 0.1 mg/dL (0.2-1.0) L Aspartate Amino Transferase (AST) 39 U/L (15-37) H Alanine Aminotransferase (ALT) 30 U/L (14-59) Alkaline Phosphatase 90 U/L (46-116) Troponin I Quantitative < 0.017 ng/mL (0.000-0.055) Total Protein 6.5 g/dL (6.4-8.2) Albumin 3.4 g/dL (3.4-5.0) Albumin/Globulin Ratio 1.1 (1.0-1.7) Salicylates Level < 2.8 mg/dL (2.8-20.0) L Salicylate Last Dose Date Unknown Salicylate Last Dose Time Unknown Acetaminophen Level < 2 mcg/ml (10-30) L Acetaminophen Last Dose Date Unknown Acetaminophen Last Dose Time Unknown Ethyl Alcohol Level < 10 mg/dL (0-10) Laboratory Tests 08/12/20 15:30 Laboratory Tests 08/12/20 15:30 Vital Signs: Vital Signs Date Time Temp Pulse Resp B/P (MAP) Pulse Ox O2 Delivery O2 Flow Rate FiO2 08/12/20 15:15 98.8 114 16 109/67 (81) 100 Room Air 98.8 EKG: EKG: [] Radiology/Procedures: Radiology/Procedures: [] Course & Med Decision Making: Course & Med Decision Making Pertinent Labs and Imaging studies reviewed. (See chart for details) This is a 25-year-old female patient presenting to the ED today via EMS to be evaluated after being found unresponsive and in snoring respirations. Was given Narcan by EMS as well as CPR was performed. Patient arrives in the ED alert oriented x4, denies any suicidal ideation, vitals are stable. Labs and work-up was ordered. I spoke to poison control Patient left AGAINST MEDICAL ADVICE, I was not able to talk to patient prior to leaving but she was alert oriented x4 and able to make her own decisions the last time I saw her. Ledy Disclaimer: Ledy Disclaimer: This electronic medical record was generated, in whole or in part, using a voice recognition dictation system. Departure Departure Impression: Primary Impression: Overdose Qualified Codes: T50.901A - Poisoning by unspecified drugs, medicaments and biological substances, accidental (unintentional), initial encounter Disposition: 07 AMA/ELOPED/LWBS Condition: STABLE Referrals: NO PCP (PCP) JUSTICE [facility]S CLIENT LEADER Aug 12, 2020 17:09
== END 2020-08-12 17:20 | disposition left against medical advice (07) ==
LOC: ER 14:59
DX: T40.2X1A Poisoning by other opioids, accidental (unintentional), initial encounter (principal); R06.83 Snoring; R10.9 Unspecified abdominal pain; F41.9 Anxiety disorder, unspecified; F17.200 Nicotine dependence, unspecified, uncomplicated; Z98.51 Tubal ligation status; Z98.890 Other specified postprocedural states; Y92.89 Other specified places as the place of occurrence of the external cause
CPT/HCPCS: 36415; 80053; 80329; 83735; 84484; 85025; 96360; 99285; G0480; J7030

== ENCOUNTER → 2020-09-15 | Outpatient (CLI) | payer MEDICAID ==
--- NOTE | 2020-09-15 15:00 | KCIC ---
MRI of the brain without contrast 09/15/2020 Clinical History: Seizures. Technique: Unenhanced T1-weighted sagittal and axial, T2-weighted axial and coronal and FLAIR, gradie nt echo and diffusion-weighted axial images of the brain were obtained. Additionally thin section FLA IR coronal images through the temporal lobes were obtained. Findings: Comparison is made to the patient's CT scan of the head dated 04/17/2020. The ventricles and sulci are within normal limits in size and configuration. No area of significant a bnormal signal intensity is seen involving the brain parenchyma. No extra-axial fluid collection is s een. There is no MRI evidence of acute ischemia/infarction. Images through the temporal lobes are wit hin normal limits. Mild to moderate mucosal thickening in seen scattered throughout the paranasal sinuses. There are min imal bilateral mastoid effusions. Normal flow voids are seen within the major vascular structures isac rounding the brain parenchyma. Impression: 1. Negative MRI of the brain. 2. Mild paranasal sinus and mastoid disease. Electronically signed by: Gaston Lou MD (09/15/2020 2:58 PM) [id number]
== END ==
LOC: KCIC MRI 13:51
PROVIDERS: ATTEND Nurse Practitioner Family
DX: G40.89 Other seizures (principal); H74.8X3 Other specified disorders of middle ear and mastoid, bilateral; J34.89 Other specified disorders of nose and nasal sinuses
CPT/HCPCS: 70551

== ENCOUNTER → 2020-09-18 | Outpatient (CLI) | payer MEDICAID ==
[2020-09-18 16:21] LABS: BASO % 0 % (0-3); EOS # 0.2 x10^3/uL (0.0-0.7); EOS % 3 % (0-3); HEMATOCRIT 37.8 % (36.0-47.0); HEMOGLOBIN 12.3 g/dL (12.0-15.5); LYMPH # 2.3 x10^3/uL (1.0-4.8); LYMPH % 32 % (24-48); MEAN CORPUSCULAR HEMOGLOBIN 29 pg (25-35); MEAN CORPUSCULAR HGB CONC 33 g/dL (31-37); MEAN CORPUSCULAR VOLUME 88 fL (79-100); MONO # 0.7 x10^3/uL (0.0-1.1); MONO % 10 % (0-9); NEUT # 3.9 x10^3/uL (1.8-7.7); NEUT % 55 % (31-73); PLATELET COUNT 310 x10^3/uL (140-400); RED BLOOD COUNT 4.31 x10^6/uL (3.50-5.40); RED CELL DISTRIBUTION WIDTH 14.7 % (11.5-14.5); WHITE BLOOD COUNT 7.1 x10^3/uL (4.0-11.0)
[2020-09-18 16:24] LABS: BARBITURATES NEG (NEG); BENZODIAZEPINES POS (NEG); CANNABINOIDS NEG (NEG); COCAINE NEG (NEG); METHADONE NEG (NEG); OPIATES NEG (NEG); PHENCYCLIDINE NEG (NEG)
[2020-09-18 16:25] LABS: AMPHETAMINE/METHAMPHETAMINE NEG (NEG)
[2020-09-18 16:34] LABS: ALBUMIN 3.6 g/dL (3.4-5.0); CALCIUM 9.1 mg/dL (8.5-10.1); CREATININE 0.7 mg/dL (0.6-1.0); GFR 102.8; POTASSIUM 4.5 mmol/L (3.5-5.1); TOTAL BILIRUBIN 0.2 mg/dL (0.2-1.0); TOTAL PROTEIN 7.2 g/dL (6.4-8.2)
[2020-09-20 20:19] LABS: ANA INTERP Negative (.)
== END ==
LOC: LAB 15:49
PROVIDERS: ATTEND Nurse Practitioner Family
DX: G40.309 Generalized idiopathic epilepsy and epileptic syndromes, not intractable, without status epilepticus (principal); Z79.899 Other long term (current) drug therapy
CPT/HCPCS: 36415; 80053; 80307; 82607; 82746; 84443; 85025; 86038